=== PATIENT | male | born 1945 | race Caucasian/White ===

== ENCOUNTER → 2016-09-23 | Outpatient (REF) | payer MEDICARE, OTHER ==
[2016-09-23 15:39] LABS: ALBUMIN 3.5 GM/DL (3.2-5.2); ALBUMIN/GLOBULIN RATIO 1.09 (1.00-1.93); ALKALINE PHOSPHATASE 75 U/L (45-117); ALT/SGPT 18 U/L (12-78); ANION GAP 6 MEQ/L (8-16); AST/SGOT 23 U/L (15-37); BILIRUBIN,TOTAL 0.5 MG/DL (0.2-1.0); BLOOD UREA NITROGEN 18 MG/DL (7-18); CARBON DIOXIDE LEVEL 35 MEQ/L (21-32); CHLORIDE LEVEL 102 MEQ/L (98-107); CHOLESTEROL LEVEL 255 MG/DL (<200); CREATININE FOR GFR 1.38 MG/DL (0.70-1.30); GLOMERULAR FILTRATION RATE 53.9 (>42); GLUCOSE, FASTING 117 MG/DL (83-110); POTASSIUM SERUM 4.8 MEQ/L (3.5-5.1); SODIUM LEVEL 143 MEQ/L (136-145); TOTAL PROTEIN 6.7 GM/DL (6.4-8.2); TRIGLYCERIDES LEVEL 570 MG/DL (<150)
== END ==
LOC: M SFHCLACO 08:38
PROVIDERS: ATTEND Physician Assistant
DX: E11.9 Type 2 diabetes mellitus without complications (principal); E78.2 Mixed hyperlipidemia; I10 Essential (primary) hypertension; I25.10 Atherosclerotic heart disease of native coronary artery without angina pectoris

== ENCOUNTER → 2016-10-07 | Outpatient (REF) | payer MEDICARE, OTHER | LOC: M SFHCLACO 09:05 | PROVIDERS: ATTEND Physician Assistant | DX: E78.2 Mixed hyperlipidemia (principal); E11.9 Type 2 diabetes mellitus without complications; I25.10 Atherosclerotic heart disease of native coronary artery without angina pectoris; I10 Essential (primary) hypertension; Z12.5 Encounter for screening for malignant neoplasm of prostate; Z53.8 Procedure and treatment not carried out for other reasons ==

== ENCOUNTER → 2016-12-25 | Outpatient (REF) | payer MEDICARE, OTHER ==
[2016-12-25 15:36] LABS: ALBUMIN 3.5 GM/DL (3.2-5.2); ALBUMIN/GLOBULIN RATIO 1.13 (1.00-1.93); BILIRUBIN,TOTAL 0.6 MG/DL (0.2-1.0); CALCIUM LEVEL 9.2 MG/DL (8.8-10.2); CREATININE FOR GFR 1.57 MG/DL (0.70-1.30); GLOMERULAR FILTRATION RATE 46.3 (>42); TOTAL PROTEIN 6.6 GM/DL (6.4-8.2)
== END ==
LOC: M LAB REF 15:01
PROVIDERS: ATTEND Physician Assistant
DX: I25.10 Atherosclerotic heart disease of native coronary artery without angina pectoris (principal); I11.9 Hypertensive heart disease without heart failure; E78.00 Pure hypercholesterolemia, unspecified

== ENCOUNTER → 2017-04-02 | Outpatient (REF) | payer MEDICARE ==
[2017-04-02 15:49] LABS: MEAN CORPUSCULAR HEMOGLOBIN 32.1 pg (27.0-33.0); MEAN CORPUSCULAR HGB CONC 33.9 g/dl (32.0-36.5); MEAN CORPUSCULAR VOLUME 94.8 fl (80.0-96.0); RED CELL DISTRIBUTION WIDTH 13.1 % (11.5-14.5); WHITE BLOOD COUNT 6.3 K/mm3 (4.0-10.0)
== END ==
LOC: M SFHCLACO 11:57
PROVIDERS: ATTEND Physician Assistant
DX: M00.9 Pyogenic arthritis, unspecified (principal)
CPT/HCPCS: 36415; 85027; G0463

== ENCOUNTER → 2017-04-07 | Outpatient (REF) | payer MEDICARE ==
[2017-04-07 15:20] LABS: ALBUMIN 3.2 GM/DL (3.2-5.2); ALBUMIN/GLOBULIN RATIO 1.03 (1.00-1.93); ALKALINE PHOSPHATASE 70 U/L (45-117); ALT/SGPT 14 U/L (12-78); ANION GAP 4 MEQ/L (8-16); AST/SGOT 18 U/L (15-37); BILIRUBIN,TOTAL 0.7 MG/DL (0.2-1.0); BLOOD UREA NITROGEN 23 MG/DL (7-18); CARBON DIOXIDE LEVEL 33 MEQ/L (21-32); CHLORIDE LEVEL 105 MEQ/L (98-107); CHOLESTEROL LEVEL 182 MG/DL (<200); CREATININE FOR GFR 1.25 MG/DL (0.70-1.30); GLOMERULAR FILTRATION RATE > 60.0 (>42); GLUCOSE, FASTING 96 MG/DL (83-110); POTASSIUM SERUM 4.4 MEQ/L (3.5-5.1); SODIUM LEVEL 142 MEQ/L (136-145); TOTAL PROTEIN 6.3 GM/DL (6.4-8.2); TRIGLYCERIDES LEVEL 255 MG/DL (<150)
== END ==
LOC: M SFHCLACO 08:42
PROVIDERS: ATTEND Physician Assistant
DX: I10 Essential (primary) hypertension (principal); E78.2 Mixed hyperlipidemia; I25.10 Atherosclerotic heart disease of native coronary artery without angina pectoris; E11.9 Type 2 diabetes mellitus without complications

== ENCOUNTER → 2017-06-30 | Outpatient (REF) | payer MEDICARE ==
[2017-06-30 15:07] LABS: ALBUMIN 3.3 GM/DL (3.2-5.2); ALBUMIN/GLOBULIN RATIO 1.03 (1.00-1.93); BILIRUBIN,TOTAL 0.6 MG/DL (0.2-1.0); CALCIUM LEVEL 8.9 MG/DL (8.8-10.2); CREATININE FOR GFR 1.4 MG/DL (0.70-1.30); GLOMERULAR FILTRATION RATE 52.9 (>42); POTASSIUM SERUM 4.2 MEQ/L (3.5-5.1); TOTAL PROTEIN 6.5 GM/DL (6.4-8.2)
== END ==
LOC: M LAB REF 14:34
PROVIDERS: ATTEND Physician Assistant
DX: I25.10 Atherosclerotic heart disease of native coronary artery without angina pectoris (principal); E78.00 Pure hypercholesterolemia, unspecified; I11.9 Hypertensive heart disease without heart failure

== ENCOUNTER → 2017-09-29 | Outpatient (REF) | payer MEDICARE ==
[2017-09-29 15:36] LABS: ESTIMATED AVERAGE GLUCOSE 128 MG/DL (60-110); HEMOGLOBIN A1c 6.1 %
[2017-09-29 15:43] LABS: ALBUMIN 3.5 GM/DL (3.2-5.2); ALBUMIN/GLOBULIN RATIO 1.17 (1.00-1.93); ALKALINE PHOSPHATASE 74 U/L (45-117); ALT/SGPT 21 U/L (12-78); ANION GAP 5 MEQ/L (8-16); AST/SGOT 24 U/L (7-37); BILIRUBIN,TOTAL 0.6 MG/DL (0.2-1.0); BLOOD UREA NITROGEN 29 MG/DL (7-18); CARBON DIOXIDE LEVEL 35 MEQ/L (21-32); CHLORIDE LEVEL 103 MEQ/L (98-107); CHOLESTEROL LEVEL 182 MG/DL (<200); CHOLESTEROL RISK RATIO 4.333 (<5); CREATININE FOR GFR 1.47 MG/DL (0.70-1.30); GLUCOSE, FASTING 86 MG/DL (70-100); HDL CHOLESTEROL 42 MG/DL (>40); LDL CHOLESTEROL 82.4 MG/DL (<100); NON-HDL-C 140 MG/DL; POTASSIUM SERUM 4.5 MEQ/L (3.5-5.1); PSA SCREENING 1.14 NG/ML (< 4.0); SODIUM LEVEL 143 MEQ/L (136-145); TOTAL PROTEIN 6.5 GM/DL (6.4-8.2); TRIGLYCERIDES LEVEL 288 MG/DL (<150)
== END ==
LOC: M SFHCLACO 08:35
DX: E11.9 Type 2 diabetes mellitus without complications (principal); I10 Essential (primary) hypertension; E78.2 Mixed hyperlipidemia; Z12.5 Encounter for screening for malignant neoplasm of prostate
CPT/HCPCS: 80053

== ENCOUNTER 2017-12-01 15:54 | Emergency (ER) | payer MEDICARE ==
[2017-12-01 17:05] LABS: BASO # 0.1 10^3/uL (0.0-0.2); BASO % 0.8 % (0.0-1.0); EOS # 0.3 10^3/uL (0.0-0.50); EOS % 3.6 % (0.0-3.0); HEMATOCRIT 42.2 % (42.0-52.0); HEMOGLOBIN 14.1 g/dl (13.5-17.5); IMMATURE GRANULOCYTE % 0.4 % (0-3.0); LYMPH # 1.9 10^3/uL (1.5-4.5); MEAN CORPUSCULAR HEMOGLOBIN 31.6 pg (27.0-33.0); MEAN CORPUSCULAR HGB CONC 33.4 g/dl (32.0-36.5); MEAN CORPUSCULAR VOLUME 94.6 fl (80.0-96.0); MONO # 0.6 10^3/uL (0.0-0.8); MONO % 8.1 % (0.0-5.0); NEUTROPHILS # 4.6 10^3/uL (1.8-7.7); NEUTROPHILS % 62.1 % (36.0-66.0); PLATELET COUNT, AUTOMATED 163 10^3/uL (150-450); RED BLOOD COUNT 4.46 10^6/uL (4.30-6.10); RED CELL DISTRIBUTION WIDTH 13.7 % (11.5-14.5); WHITE BLOOD COUNT 7.4 10^3/uL (4.0-10.0)
[2017-12-01] MEDS: ASPIRIN 81 MG CHEW TABLET PO (17:14)
[2017-12-01 17:18] LABS: INR 0.94; PROTHROMBIN TIME 12.6 SECONDS (12.4-14.5)
[2017-12-01 17:32] LABS: ALBUMIN 3.4 GM/DL (3.2-5.2); ALBUMIN/GLOBULIN RATIO 0.89 (1.00-1.93); ALKALINE PHOSPHATASE 68 U/L (45-117); ALT/SGPT 18 U/L (12-78); ANION GAP 2 MEQ/L (8-16); AST/SGOT 25 U/L (7-37); BILIRUBIN,DIRECT 0.1 MG/DL (0.0-0.2); BILIRUBIN,TOTAL 0.6 MG/DL (0.2-1.0); BLOOD UREA NITROGEN 20 MG/DL (7-18); CALCIUM LEVEL 8.9 MG/DL (8.8-10.2); CARBON DIOXIDE LEVEL 34 MEQ/L (21-32); CHLORIDE LEVEL 105 MEQ/L (98-107); CPK CREATINE PHOSPHOKINASE 131 U/L (39-308); CREATININE FOR GFR 1.44 MG/DL (0.70-1.30); GLOMERULAR FILTRATION RATE 51.1 (>42); GLUCOSE, FASTING 95 MG/DL (70-100); LIPASE 170 U/L (73-393); POTASSIUM SERUM 3.9 MEQ/L (3.5-5.1); SODIUM LEVEL 141 MEQ/L (136-145); TOTAL PROTEIN 7.2 GM/DL (6.4-8.2); TROPONIN I < 0.02 NG/ML (< 0.10)
[2017-12-01 17:38] LABS: CK-MB VALUE MASS 3.7 NG/ML (<3.6); MB/CK RELATIVE INDEX 2.82 (< OR =4)
[2017-12-01] MEDS ORDERED: ISOVUE-370 76% 100ML VIAL (Q9967) As Ordered (19:46)
[2017-12-01 22:29] LABS: CK-MB VALUE MASS 4.4 NG/ML (<3.6); CPK CREATINE PHOSPHOKINASE 142 U/L (39-308); MB/CK RELATIVE INDEX 3.09 (< OR =4); TROPONIN I < 0.02 NG/ML (< 0.10)
== END 2017-12-01 23:39 | disposition home or self-care (01) ==
LOC: M ED 15:54
DX: R61 Generalized hyperhidrosis (principal); R11.0 Nausea; I25.10 Atherosclerotic heart disease of native coronary artery without angina pectoris; I25.2 Old myocardial infarction; I10 Essential (primary) hypertension; E78.5 Hyperlipidemia, unspecified; Z91.048 Other nonmedicinal substance allergy status; Z87.891 Personal history of nicotine dependence; Z88.1 Allergy status to other antibiotic agents; Z88.2 Allergy status to sulfonamides; Z79.899 Other long term (current) drug therapy
CPT/HCPCS: Q9967

== ENCOUNTER → 2018-03-23 | Outpatient (REF) | payer MEDICARE ==
[2018-03-23 15:02] LABS: ALBUMIN 3.3 GM/DL (3.2-5.2); ALKALINE PHOSPHATASE 64 U/L (45-117); ALT/SGPT 19 U/L (12-78); ANION GAP 7 MEQ/L (8-16); AST/SGOT 26 U/L (7-37); BILIRUBIN,TOTAL 0.6 MG/DL (0.2-1.0); BLOOD UREA NITROGEN 15 MG/DL (7-18); CALCIUM LEVEL 8.8 MG/DL (8.8-10.2); CARBON DIOXIDE LEVEL 31 MEQ/L (21-32); CHLORIDE LEVEL 107 MEQ/L (98-107); CHOLESTEROL LEVEL 217 MG/DL (<200); CREATININE FOR GFR 1.38 MG/DL (0.70-1.30); GLOMERULAR FILTRATION RATE 53.6 (>42); GLUCOSE, FASTING 118 MG/DL (70-100); HDL CHOLESTEROL 35 MG/DL (>40); NON-HDL-C 182 MG/DL; POTASSIUM SERUM 4.4 MEQ/L (3.5-5.1); SODIUM LEVEL 145 MEQ/L (136-145); TOTAL PROTEIN 6.3 GM/DL (6.4-8.2); TRIGLYCERIDES LEVEL 463 MG/DL (<150)
[2018-03-23 15:07] LABS: ESTIMATED AVERAGE GLUCOSE 134 MG/DL (60-110); HEMOGLOBIN A1c 6.3 %
== END ==
LOC: M SFHCLACO 08:36
DX: I10 Essential (primary) hypertension (principal); I25.10 Atherosclerotic heart disease of native coronary artery without angina pectoris; E78.2 Mixed hyperlipidemia; E11.9 Type 2 diabetes mellitus without complications
CPT/HCPCS: 80053

== ENCOUNTER 2020-12-13 09:13 | Inpatient (IN) | payer MEDICARE ==
[~2020-12-13] VITALS: Ht 160 cm; Wt 96.9 kg
[~2020-12-13 09:13] MED LIST: ALLO100T; BENA20TA8 PO; FURO20TA2 PO; NITR0.4S14 PO; PRAV20TA2 PO
[2020-12-13] MEDS ORDERED: METO1TAB7 PO (09:21)
[2020-12-13] MEDS ORDERED: ALLO100T PO (09:21)
[2020-12-13] MEDS ORDERED: WARF-18 PO ×2 (09:21→14:28)
[2020-12-13] MEDS ORDERED: EZET10TA21 PO (09:21)
[2020-12-13] MEDS ORDERED: ONDANSETRON 4MG/2ML VIAL As Ordered ONE (09:41)
[2020-12-13 10:10] LABS: VENOUS BASE EXCESS 0.9 (-2.0-2.0); VENOUS PARTIAL PRESSURE CO2 49.2 mmHg (38.0-50.0); VENOUS PARTIAL PRESSURE O2 63.8 mmHg (30.0-50.0); VENOUS PH 7.358 UNITS (7.330-7.430); VENOUS STANDARD HCO3 25.1 MEQ/L; VENOUS TOTAL CO2 28.6 MEQ/L (24.0-28.0)
[2020-12-13 10:16] LABS: HEMATOCRIT 40.8 % (42.0-52.0); HEMOGLOBIN 13.7 g/dl (13.5-17.5); MEAN CORPUSCULAR HEMOGLOBIN 31.2 pg (27.0-33.0); MEAN CORPUSCULAR HGB CONC 33.6 g/dl (32.0-36.5); MEAN CORPUSCULAR VOLUME 92.9 fl (80.0-96.0); PLATELET COUNT, AUTOMATED 185 10^3/uL (150-450); RED BLOOD COUNT 4.39 10^6/uL (4.30-6.10); WHITE BLOOD COUNT 6.7 10^3/uL (4.0-10.0)
--- NOTE | 2020-12-13 10:27 | REP ---
INDICATION: DYSPNEA/COUGH. COMPARISON: 12/01/2017 the latest prior also portable FINDINGS: The technique utilized in obtaining the radiograph has magnified the cardiac silhouette and accentuated the interstitial markings. The cardiomediastinal silhouette is unchanged and within normal limits. Patchy opacities have developed in the right lung and left lower lobe. There is no evidence of a pleural effusion. There is no change in the osseous structures. IMPRESSION: Patchy lung field opacities, as described above, consistent with either pneumonia or asymmetric pulmonary edema. <Electronically signed by El Gipson > 12/13/20 1022
[2020-12-13 10:30] LABS: INR 4.23; PROTHROMBIN TIME 41.7 SECONDS (12.5-14.3)
[2020-12-13 10:32] LABS: D-DIMER QUANT 650.87 ng/ml (<500)
[2020-12-13 10:38] LABS: ATYPICAL LYMPH 11 % (0-5); LYMPHOCYTES 12 % (16-44); MONOCYTES 3 % (0-5); NEUTROPHILS 73 % (28-66); PLATELET ESTIMATE NORMAL (NORMAL)
[2020-12-13 10:39] LABS: ANISOCYTOSIS 1+
[2020-12-13 10:44] LABS: ERYTHROCYTE SEDIMENTATION RATE 84 mm/hr (0-20)
[2020-12-13 10:47] LABS: ALBUMIN 2.7 GM/DL (3.2-5.2); BILIRUBIN,DIRECT 0.5 MG/DL (0.0-0.2); CALCIUM LEVEL 8.8 MG/DL (8.8-10.2); CK-MB VALUE MASS 4.7 NG/ML (<3.6); CREATININE FOR GFR 2.28 MG/DL (0.70-1.30); GLOMERULAR FILTRATION RATE 29.8 (>42); MB/CK RELATIVE INDEX 1.81 (< OR =4); POTASSIUM SERUM 4.5 MEQ/L (3.5-5.1); THYROID STIMULATING HORMONE 2.07 uIU/ML (0.358-3.740); THYROXINE (T4) 6.5 UG/DL (4.5-12.0); TOTAL PROTEIN 6.7 GM/DL (6.4-8.2); TROPONIN I 0.02 NG/ML (< 0.10)
[2020-12-13] MEDS ORDERED: NS 500 ML IV ONE (11:30)
--- NOTE | 2020-12-13 12:03 | REP ---
INDICATION: shortness of breath, abdominal discomfort- post covid/arf. COMPARISON: 12/01/2017. TECHNIQUE: CT chest performed without the use of intravenous contrast. Sagittal and coronal reconstruction images are performed. FINDINGS: Lungs: Scattered patchy alveolar and interstitial infiltrates are seen throughout the right lung, to a much lesser extent throughout the left lung. There are few calcified granulomas in the right lung. Mediastinum: A precarinal lymph node is centrally upper limits of normal in size, 11 mm in short axis. Fozia: No gross adenopathy. Axilla: No gross adenopathy. Pleura: No effusion. Heart: Not enlarged. Thoracic aorta: No aneurysm. Upper abdominal structures: There is a 2.4 cm gallstone in the gallbladder. There is a 1.6 cm cyst in the upper pole the left kidney. There is an exophytic 1.5 cm cyst of the mid right kidney laterally. Visualized osseous structures: There are mild degenerative changes of the spine without compression deformity. IMPRESSION: Scattered patchy alveolar are and interstitial infiltrates diffusely bilaterally, right much more so than left. <Electronically signed by Cory Howell > 12/13/20 1200
--- NOTE | 2020-12-13 12:19 | REP ---
INDICATION: shortness of breath, abdominal discomfort- post covid/arf COMPARISON: None. TECHNIQUE: CT Scan of the abdomen and pelvis was performed without intravenous contrast. Sagittal and coronal reconstruction images performed. FINDINGS: Liver: Grossly unremarkable. Gallbladder: There is a 2.4 cm gallstone in the gallbladder without evidence of significant gallbladder wall thickening. Spleen: Grossly unremarkable. Adrenals: Normal. Pancreas: Grossly unremarkable.. Kidneys: There is a 1.6 cm cyst in the upper pole the left kidney. There is an exophytic 1.5 cm cyst of the mid right kidney laterally. There is a 9 mm calculus at the left ureteral pelvic junction. There is mild left hydronephrosis. Small and large bowel: There is no evidence of free intraperitoneal air or bowel obstruction. No bowel wall thickening is seen. There are diverticula of the sigmoid colon. Free fluid: None. Abdominal aorta: No aneurysm. Adenopathy: None. Appendix: Prior appendectomy. Osseous structures: There are degenerative changes of the spine without compression deformity. Pelvis: No mass. No bladder calculus seen. IMPRESSION: There is a 9 mm calculus at the left ureteropelvic junction causing mild left hydronephrosis. There is a 2.4 cm gallstone in the gallbladder without evidence of significant gallbladder wall edema. No evidence of free air or obstruction. No free fluid. <Electronically signed by Cory Howell > 12/13/20 1004
[2020-12-13] MEDS ORDERED: NS 1,000 ML IV ONE (13:15)
[2020-12-13] MEDS ORDERED: MOXIFLOXACIN HCL 400 MG in IV 1 EA IV ONE (13:15)
[2020-12-13] MEDS ORDERED: cefTRIAXone SOD 2 GM in D5W MINI-BAG PLUS 50 ML IV ONE (13:25)
[2020-12-13] MEDS ORDERED: ASPI81TA28 PO (14:28)
[2020-12-13] MEDS ORDERED: MAALOX 30 ML SUSP *UDC PO PRN (16:00)
[2020-12-13] MEDS ORDERED: MOM 30ML SUSPENSION UDC PO PRN (16:00)
[2020-12-13] MEDS ORDERED: ACETAMINOPHEN TAB 650MG DOSE (2X325MG) PO PRN (16:00)
--- NOTE | 2020-12-13 16:46 | HPEPDOC ---
[facility] Medical History & Physical Date of Admission December 13, 2020 Date of Service: December 13, 2020 History and Physical CHIEF COMPLAINT: vomiting and diarrhea HISTORY OF PRESENT ILLNESS: 75 yo M with a hx of HTN, CAD s/p VT, LV thrombus on warfarin, DM2, HLD, recently diagnosed with covi-19 (quarantine ended on 12/11/20, without hospitilization), presented to the ER from his PCP office for shortness of breath and hypoxia. He was noted to be hypoxic to low 80s per report, and required 2LPM in ambulance. He also reported 3 days of nausea, vomiting and frequent watery diarrhea, without a hx of recent antibiotic or laxative use. He states he was diagnose with covid-19 recently, and did not require hospilization, quarantine at home finished on 12/11/20. He denies chest pain, palpitations, shortness of breath, dysuria, cough, sputum or subjective chills. On arrival to ER, patient required 4L O2. labs showing elevated Cr to 2.28 (last known 1.3). CT abdomen showing 9mm stone at L ureteropelvic junction with mild L hydronephrosis. Patient does not report flank or back pain, voiding urine spontaneously. Dr. Villarreal from urology was called, does not suspect stone to be cause of ROEL but rather dehydration. CT chest showing interstitial infiltrate worse on R. Procal was elevated at 0.12. PAST MEDICAL HISTORY: Coronary artery disease s/p VT involving LAD in 1995, s/p thrombolytic therapy, follows with Dr. Robles LV apical thrombus dx 2018, on warfarin therapy Essential HTN Gout DM2 BPH HLD PAST SURGICAL HISTORY: Appendectomy SOCIAL HISTORY: Former smoker, quit > 10 years ago Patient denies etoh use Patient denies illicit drug use FAMILY HISTORY: Father: , age 72, COPD Mother: age 101, unspecified heart disease ALLERGIES: Please see below. REVIEW OF SYSTEMS: 10 point ROS completed, relevant findings are noted in the HPI HOME MEDICATIONS: Please see below. PHYSICAL EXAMINATION: VITAL SIGNS: please see below General: NAD, comfortable HEENT: PERRLA, EOMI, sclerae clear Neck: supple, normal ROM, no JVD Respiratory: lungs CTAB, no wheeze, no rales, no crackles CVS: RRR, normal S1, S2, no murmurs Abdo: soft, no masses, no hepatosplenomegaly, BS+, no rebound tenderness Extremities: no edema, pulses 2+ MSK: no joint deformities, normal ROM Neuro: no focal neuro deficits, moving all 4 extremities, CN2-12 intact. Strength 5/5 in all 4 extremities. No nystagmus. Psych: calm, cooperative, AAO x 3 LABORATORY DATA: See below. IMAGING: CT chest (12/13/20): Scattered patchy alveolar are and interstitial infiltrates diffusely bilaterally, right much more so than left. CXR (12/13/20): Patchy lung field opacities, as described above, consistent with either pneumonia or asymmetric pulmonary edema. CT abdo pelvis without contrast (12/13/20): There is a 9 mm calculus at the left ureteropelvic junction causing mild left hydronephrosis. There is a 2.4 cm gallstone in the gallbladder without evidence of significant gallbladder wall edema. No evidence of free air or obstruction. No free fluid. MICROBIOLOGY: Please see below. ASSESSMENT: 75 yo M with a hx of HTN, CAD s/p VT, LV thrombus on warfarin, DM2, HLD, recently diagnosed with covi-19 (quarantine ended on 12/11/20, without hospitilization), presented to the ER from his PCP office for shortness of breath and hypoxia. PLAN: Dyspnea with hypoxic possible 2/2 post covid syndrome vs superimposed bacterial pna - tested positive for covid on 12/01/20, quarantine ended on 12/13/20. No additional testing performed in ER - inflammatory markers elevated - discussed with Dr. Ellis, having persistent symptoms of covid. out of Remdesevir window. Recommends starting IV dexamethasone 6 mg IV daily. - PE unlikely given chronic warfarin therapy, INR supratherapeutic. Will obtain venous duplex and VQ scan in event of AC failure - continue O2 maintain sat above 92%. - incentive spirometry - given BNP elevation to 750, possible component of acute distolic CHF exacerbation (see below) - procal 0.12. - start on ceftriaxone and azithromycin for suspect pna - check sputum culture, check legionella antigen, check strep pneum urine ag - check blood cultures Acute renal failure - given diarrhea and vomiting likely pre renal due to hypovolemia - check UA w reflex to culture - CT showing 9mm stone, mild hydronephrosis, per urology likely not cause of acute renal failure, given lack of pain - will repeat renal US in am - s/p 1500 NS bolus in ER - c/w maintenance IVF, judicious use given hx of diastolic CHF LV thrombus - per Dr. Robles, on chronic warfarin therapy - repeat echo ordered Diastolic CHF hx - BNP 750 - echo ordered - will continue judicious use of fluids, until kidney function improves Supratherapeutic INR - holding warfarin as supratherapetic INR - check INR daily DM2 - ISS and FSBS AC and HS - hypoglycemic precautions DVT ppx: SCDs, TEDs. Holding warfarin due to supratherapeutic INR. Vital Signs Vital Signs Date Time Temp Pulse Resp B/P (MAP) Pulse Ox O2 Delivery O2 Flow Rate FiO2 12/13/20 15:15 64 19 122/58 (79) 96 Nasal Cannula 4.0 12/13/20 09:14 98.2 Laboratory Data Labs 24H Laboratory Tests 2 12/13/20 09:32: Neutrophils (%) (Auto) , Nucleated Red Blood Cells % (auto) 0.3H, Neutrophils 73H, Band Neutrophils 1, Lymphocytes (Manual) 12L, Monocytes (Manual) 3, Atypical Lymphocytes 11H, Anisocytosis 1+, Macrocytosis 1+, Platelet Estimate NORMAL, Erythrocyte Sedimentation Rate 84H, Prothrombin Time 41.7H, Prothromb Time International Ratio 4.23, D-Dimer, Quantitative 650.87H, Anion Gap 6L, G lomerular Filtration Rate 29.8L, Lactic Acid Level 1.3, Calcium Level 8.8, Ferritin 541H, Total Bilirubin 1.0, Direct Bilirubin 0.5H, Aspartate Amino Transf (AST/SGOT) 68H, Alanine Aminotransferase (ALT/SGPT) 25, Alkaline Phosphatase 69, Lactate Dehydrogenase 325H, Total Creatine Kinase 260, Creatine Kinase MB 4.7H, Creatine Kinase MB Relative Index 1.81, Troponin I 0.02, C- Reactive Protein, Quantitative 11.00H, YB-Qod-H-Type Natriuretic Peptide 748H, Total Protein 6.7, Albumin 2.7L, Albumin/Globulin Ratio 0.7, Thyroid Stimulating Hormone (TSH) 2.070, Thyroxine (T4) 6.5 12/13/20 09:54: Blood Gas Bicarbonate Standard 25.1, Venous Blood pH 7.358, Venous Blood Partial Pressure CO2 49.2, Venous Blood Partial Pressure O2 63.8H, Venous Blood Total Carbon Dioxide 28.6H, Venous Blood HCO3 27.0, Venous Blood Oxygen Saturation 91.0H, Venous Blood Base Excess 0.9, Procalcitonin 0.12 CBC/BMP Laboratory Tests 12/13/20 09:32 Microbiology Microbiology 12/13/20 Blood Culture, Received Pending 12/13/20 Blood Culture, Received Pending Home Medications Scheduled Allopurinol (Allopurinol) 100 Mg Tablet, 100 MG PO DAILY Amoxicillin/Potassium Clav (Augmentin 875-125 Tablet) 1 Each Tablet, 1 TAB PO BID Aspirin (Aspirin EC) 81 Mg Tablet.dr, 81 MG PO DAILY Benazepril HCl (Benazepril HCl) 20 Mg Tab, 20 MG PO DAILY Ezetimibe (Ezetimibe) 10 Mg Tablet, 10 MG PO QHS Furosemide (Furosemide) 20 Mg Tab, 20 MG PO DAILY Metoprolol Succinate (Metoprolol Succinate) 50 Mg Tab.er.24h, 25 MG PO DAILY Pravastatin Sodium (Pravastatin Sodium) 20 Mg Tab, 20 MG PO QHS Warfarin Sodium (Warfarin Sodium) 2.5 Mg Tablet, 5 MG PO 3XW TUES, THURS, SAT EVENING Warfarin Sodium (Warfarin Sodium) 2.5 Mg Tablet, 7 MG PO 4XWK SUN, MON, WED, FRI EVENING Scheduled PRN Nitroglycerin (Nitroglycerin) 0.4 Mg Sub, 0.4 MG PO NITRO PRN for CHEST PAIN Allergies Coded Allergies: Sulfa (Sulfonamide Antibiotics) (Verified Allergy, Unknown, 12/13/20) A-FIB/CHADSVASC A-FIB History Current/History of A-Fib/PAF?: No Current PO Anticoag Therapy: Yes YO MORENO MD December 13, 2020 16:46
[2020-12-13 17:12] VITALS: BP 106/52
[2020-12-13] MEDS ORDERED: cefTRIAXone SOD 1 GM in D5W MINI-BAG PLUS 50 ML IV SCH (18:00)
[2020-12-13] MEDS: NS 1,000 ML IV SCH (18:09)
[2020-12-13] MEDS: dexameTHASONE 4 MG/ML 1ML VIAL (J1100 PER 1MG) IV SCH (18:09)
[2020-12-13] MEDS ORDERED: AZITHROMYCIN INJ 500 MG, VIAL MATE ADAPTER 1 EACH in NS 250 ML IV SCH (19:00)
[2020-12-13 20:07] VITALS: BP 99/53
[2020-12-13] MEDS: DOCUSATE SODIUM 100MG CAPSULE PO SCH (20:53)
[2020-12-13] MEDS ORDERED: HEPARIN SOD (PORCINE) 5000UNITS/ML 1ML VIAL/SYRINGE SC SCH (22:00)
--- NOTE | 2020-12-14 00:29 | REPVR ---
PROCEDURE INFORMATION: Exam: US Duplex Lower Extremity Veins, Bilateral Exam date and time: 12/13/2020 11:49 PM Age: 75 years old Clinical indication: Other: SOB, covid +; Additional info: R. O dvt TECHNIQUE: Imaging protocol: Real-time duplex ultrasound of the extremities with 2-D roberts scale, color Doppler flow and spectral waveform analysis with image documentation. Complete exam focused on the bilateral lower extremity veins. COMPARISON: No relevant prior studies available. FINDINGS: Right deep veins: Unremarkable. The common femoral, femoral and popliteal veins are patent without thrombus. Normal Doppler waveforms. Normal compressibility and/or augmentation response. Right superficial veins: Saphenofemoral junction is patent without thrombus. Left deep veins: Unremarkable. The common femoral, femoral and popliteal veins are patent without thrombus. Normal Doppler waveforms. Normal compressibility and/or augmentation response. Left superficial veins: Saphenofemoral junction is patent without thrombus. Soft tissues: Unremarkable. IMPRESSION: No sonographic evidence of deep vein thrombosis. Electronically signed by: Oleg Boykin On 12/14/2020 00:28:59 AM
[2020-12-14 00:56] VITALS: BP 108/55
--- NOTE | 2020-12-14 04:49 | ECGEPIP ---
[facility] - ED Test Date: 2020-12-13 Pat Name: HEIDY LAST Department: Room: - Gender: Male [employer]: KEIRA : 1945 Requested By: FREDERIC Gaffney Order Number: [id number] Reading MD: Edilberto Holley Measurements Intervals [place] Rate: 71 P: 38 [place]: 156 QRS: -40 QRSD: 120 T: 60 QT: 368 QTc: 399 Interpretive Statements Normal sinus rhythm Left axis deviation Right bundle branch block, new compared to 12/01/17 Anteroseptal infarct , age undetermined Electronically Signed on 12-14-2020 4:49:12 EDT by Edilberto Holley
[2020-12-14 04:56] VITALS: BP 100/59
[2020-12-14] MEDS: NS 1,000 ML IV SCH ×3 (06:32→22:11)
[2020-12-14] MEDS ORDERED: GLUCAGON INJ 1MG VIAL SC PRN (07:30)
[2020-12-14] MEDS ORDERED: NITROGLYCERIN 0.4 MG SUBL TABLET SL PRN (07:30)
[2020-12-14] MEDS ORDERED: COMBIVENT RESPIMAT 100-20MCG INHALER 4GM INH PRN (07:30)
[2020-12-14] MEDS ORDERED: GLUCOSE 4GM CHEW TABLET PO PRN (07:30)
[2020-12-14] MEDS ORDERED: DEXTROSE 50% 50 ML SYRINGE IV PRN (07:30)
[2020-12-14] MEDS: BENAZEPRIL 20 MG TAB PO SCH (09:00)
[2020-12-14] MEDS: METOPROLOL SUCC *XL* 25MG TAB (TopROL *XL*) PO SCH (09:00)
[2020-12-14 09:17] LABS: HEMATOCRIT 39.7 % (42.0-52.0); HEMOGLOBIN 12.8 g/dl (13.5-17.5); MEAN CORPUSCULAR HEMOGLOBIN 30.8 pg (27.0-33.0); MEAN CORPUSCULAR HGB CONC 32.2 g/dl (32.0-36.5); MEAN CORPUSCULAR VOLUME 95.7 fl (80.0-96.0); PLATELET COUNT, AUTOMATED 184 10^3/uL (150-450); RED BLOOD COUNT 4.15 10^6/uL (4.30-6.10); WHITE BLOOD COUNT 5.7 10^3/uL (4.0-10.0)
[2020-12-14 09:29] LABS: INR 4.67; PARTIAL THROMBOPLASTIN TIME 66.1 SECONDS (24.2-38.5); PROTHROMBIN TIME 45.1 SECONDS (12.5-14.3)
[2020-12-14 09:31] LABS: D-DIMER QUANT 474.39 ng/ml (<500)
[2020-12-14] MEDS: HumaLOG INSULIN (NovoLOG) PER UNIT SC SCH ×4 (09:38→20:17)
[2020-12-14] MEDS: dexameTHASONE 4 MG/ML 1ML VIAL (J1100 PER 1MG) IV SCH (09:39)
[2020-12-14] MEDS: FUROSEMIDE 20 MG TAB PO SCH (09:39)
[2020-12-14] MEDS: ASPIRIN 81MG ENTERIC TABLET PO SCH (09:39)
[2020-12-14] MEDS: DOCUSATE SODIUM 100MG CAPSULE PO SCH ×2 (09:39→20:16)
[2020-12-14] MEDS: allopurinoL 100 MG TAB PO SCH (09:41)
[2020-12-14 09:44] LABS: ATYPICAL LYMPH 5 % (0-5); BASOPHILS 1 % (0-1); LYMPHOCYTES 11 % (16-44); MONOCYTES 4 % (0-5); NEUTROPHILS 78 % (28-66); PLATELET ESTIMATE NORMAL (NORMAL)
[2020-12-14 09:45] LABS: ANISOCYTOSIS 1+
[2020-12-14 09:52] LABS: C REACTIVE PROTEIN QUANTITATIV 9.16 MG/DL (0.00-0.30); TROPONIN I 0.02 NG/ML (< 0.10)
[2020-12-14 09:58] LABS: ALBUMIN 2.3 GM/DL (3.2-5.2); BILIRUBIN,TOTAL 0.5 MG/DL (0.2-1.0); CALCIUM LEVEL 8.1 MG/DL (8.8-10.2); CREATININE FOR GFR 1.49 MG/DL (0.70-1.30); GLOMERULAR FILTRATION RATE 48.7 (>42); MAGNESIUM LEVEL 2.6 MG/DL (1.8-2.4); POTASSIUM SERUM 5.5 MEQ/L (3.5-5.1); TOTAL PROTEIN 5.5 GM/DL (6.4-8.2)
[2020-12-14 14:45] VITALS: BP 89/50
[2020-12-14] MEDS ORDERED: SOD POLYSTYRENE SULFONATE SUSP 15 GM/60 ML UD PO ONE (15:00)
[2020-12-14 16:31] VITALS: BP 90/53
[2020-12-14] MEDS ORDERED: NS 1,000 ML IV ONE (17:00)
[2020-12-14 17:59] LABS: HEMATOCRIT 37.6 % (42.0-52.0); HEMOGLOBIN 12.2 g/dl (13.5-17.5); MEAN CORPUSCULAR HEMOGLOBIN 31.3 pg (27.0-33.0); MEAN CORPUSCULAR HGB CONC 32.4 g/dl (32.0-36.5); MEAN CORPUSCULAR VOLUME 96.4 fl (80.0-96.0); PLATELET COUNT, AUTOMATED 189 10^3/uL (150-450); WHITE BLOOD COUNT 8.4 10^3/uL (4.0-10.0)
[2020-12-14 18:12] LABS: ALBUMIN 2.3 GM/DL (3.2-5.2); BILIRUBIN,TOTAL 0.4 MG/DL (0.2-1.0); CALCIUM LEVEL 8.5 MG/DL (8.8-10.2); CREATININE FOR GFR 1.5 MG/DL (0.70-1.30); GLOMERULAR FILTRATION RATE 48.3 (>42); MAGNESIUM LEVEL 2.4 MG/DL (1.8-2.4); POTASSIUM SERUM 4.6 MEQ/L (3.5-5.1); TOTAL PROTEIN 5.9 GM/DL (6.4-8.2)
[2020-12-14 18:30] VITALS: BP 98/54
[2020-12-14] MEDS: PIPERACILLIN/TAZOBACTAM SOD 4.5 GM in D5W MINI-BAG PLUS 50 ML IV SCH (18:41)
[2020-12-14 19:06] LABS: LYMPHOCYTES 11 % (16-44); NEUTROPHILS 89 % (28-66)
[2020-12-14 19:07] LABS: ANISOCYTOSIS 1+; OVALOCYTES 1+; PLATELET ESTIMATE NORMAL (NORMAL); POIKILOCYTOSIS 1+; POLYCHROMASIA 1+
[2020-12-14] MEDS ORDERED: ISOVUE-370 76% 100ML VIAL As Ordered ONE (19:27)
[2020-12-14 20:00] VITALS: BP 114/60
[2020-12-14] MEDS: PRAVASTATIN 20 MG TAB PO SCH (20:16)
[2020-12-14] MEDS: EZETIMIBE 10 MG TAB (ZETIA) PO SCH (20:17)
--- NOTE | 2020-12-14 20:25 | REPVR ---
PROCEDURE INFORMATION: Exam: CTA Chest With Contrast Exam date and time: 12/14/2020 7:53 PM Age: 75 years old Clinical indication: Other: R/O pe TECHNIQUE: Imaging protocol: Computed tomographic angiography of the chest with contrast. 3D rendering (Not supervised by radiologist): MIP and/or 3D reconstructed images were created by the technologist. Radiation optimization: All CT scans at this facility use at least one of these dose optimization techniques: automated exposure control; mA and/or kV adjustment per patient size (includes targeted exams where dose is matched to clinical indication); or iterative reconstruction. Contrast material: ISOVUE 370; Contrast volume: 75 ml; Contrast route: INTRAVENOUS (IV); COMPARISON: CT ANGIO CHEST 12/01/2017 7:48 PM FINDINGS: Limitations: This examination is slightly suboptimal secondary to motion induced image degradation. Pulmonary arteries: No filling defects identified within the main pulmonary trunk, right or left main pulmonary arteries or lobar arteries to indicate pulmonary emboli. Aorta: Mild atherosclerosis of the thoracic aorta without aneurysm or dissection. Lungs: There are bilateral multifocal patchy lung densities and ground-glass opacities as well as extensive consolidation within the right upper lobe consistent with multifocal pneumonia in the proper clinical setting. Other underlying pulmonary lesions including malignancy cannot be excluded. Follow-up CT scan a confirm resolution is recommended. Pleural spaces: Unremarkable. No pneumothorax. No pleural effusion. Heart: Moderate coronary atherosclerosis. Lymph nodes: Mild mediastinal and bilateral hilar lymphadenopathy, nonspecific but likely reactive. Gallbladder and bile ducts: 2.5 cm stone within the gallbladder without cholecystitis. Bones/joints: Degenerative spondylosis of the lower cervical and thoracic spine. No fracture or suspicious bone lesion. Soft tissues: Unremarkable. IMPRESSION: 1. Slightly limited evaluation of the peripheral pulmonary arteries. No central pulmonary arterial embolism is identified. 2. Findings consistent with bilateral multifocal pneumonia in the proper clinical setting. Other underlying pulmonary lesions including malignancy cannot be completely excluded. Follow-up CT scan of the chest is recommended to confirm resolution. Electronically signed by: Rivas Dixon On 12/14/2020 20:25:39 PM
--- NOTE | 2020-12-14 21:52 | IPNPDOC ---
Date Seen The patient was seen on 12/14/20. Progress Note SUBJECTIVE: no acute events OBJECTIVE PHYSICAL EXAMINATION: VITAL SIGNS: please see below General: NAD, comfortable HEENT: PERRLA, EOMI, sclerae clear Neck: supple, normal ROM, no JVD Respiratory: lungs CTAB, no wheeze, no rales, no crackles CVS: RRR, normal S1, S2, no murmurs Abdo: soft, no masses, no hepatosplenomegaly, BS+, no rebound tenderness Extremities: no edema, pulses 2+ MSK: no joint deformities, normal ROM Neuro: no focal neuro deficits, moving all 4 extremities, CN2-12 intact. Strength 5/5 in all 4 extremities. No nystagmus. Psych: calm, cooperative, AAO x 3 LABORATORY DATA, IMAGING STUDIES, MICROBIOLOGY: Please see below. Venous duplex b/l (12/13/20: No sonographic evidence of deep vein thrombosis. CTA chest (12/14/20): 1. Slightly limited evaluation of the peripheral pulmonary arteries. No central pulmonary arterial embolism is identified. 2. Findings consistent with bilateral multifocal pneumonia in the proper clinical setting. Other underlying pulmonary lesions including malignancy cannot be completely excluded. Follow-up CT scan of the chest is recommended to confirm resolution. Echocardiogram: ordered, pending DVT prophylaxis ordered?: INR supratherapeutic ASSESSMENT AND PLAN: 75 yo M with a hx of HTN, CAD s/p PA, LV thrombus on warfarin, DM2, HLD, recently diagnosed with covi-19 (quarantine ended on 12/11/20, without hospitilization), presented to the ER from his PCP office for shortness of breath and hypoxia. PLAN: Dyspnea with hypoxic possible 2/2 post covid syndrome vs superimposed bacterial pna - tested positive for covid on 12/01/20, quarantine ended on 12/13/20. No additional testing performed in ER - inflammatory markers elevated - discussed with Dr. Ellis, having persistent symptoms of covid. out of Remde sevir window. Recommends starting IV dexamethasone 6 mg IV daily. - PE unlikely given chronic warfarin therapy, INR supratherapeutic. - CT angio showing no central PE, likely multifocal pneumonia - continue O2 maintain sat above 92%. - incentive spirometry - procal 0.12. - start on ceftriaxone and azithromycin for suspect pna - check sputum culture, check legionella antigen, check strep pneum urine ag - blood cultures prelim neg Sepsis - meets criteria based on hypotension, hypothermia, tachypnea - LA wnl - stop ceftriaxone, azithro - switch to zosyn - 1L NS bolus - BP improved Possible malignancy on CT - repeat imaging after treatment of pna Acute renal failure - Cr improving from 2.5 to 1.5 - given diarrhea and vomiting likely pre renal due to hypovolemia - UA wnl - CT showing 9mm stone, mild hydronephrosis, per urology likely not cause of acute renal failure, given lack of pain - will repeat renal US in am - s/p 1500 NS bolus in ER - c/w maintenance IVF, judicious use given hx of diastolic CHF LV thrombus - per Dr. Robles, on chronic warfarin therapy - repeat echo ordered Hx of diastolic chf - chest imaging c/w fluid overload w possible pna - BNP 750, likely elevated due to covid-19, appears clinically euvolemic - echo ordered - will continue judicious use of fluids, until kidney function improves Supratherapeutic INR - INR 4.23, 4.67 - holding warfarin as supratherapetic INR - check INR daily DM2 - ISS and FSBS AC and HS - hypoglycemic precautions DVT ppx: SCDs, TEDs. Holding warfarin due to supratherapeutic INR. VS, I&O, 24H, Fishbone Vital Signs/I&O Vital Signs Date Time Temp Pulse Resp B/P (MAP) Pulse Ox O2 Delivery O2 Flow Rate FiO2 12/14/20 20:00 6.0 12/14/20 20:00 97.0 76 22 114/60 (78) 92 High Flow Cannula I&O- Last 24 Hours up to 6 AM 12/14/20 06:00 Intake Total 3115 ml Output Total 2050 ml Balance 1065 ml Laboratory Data 24H LABS Laboratory Tests 2 12/14/20 05:42: Bedside Glucose (Misc Panel) 133H 12/14/20 09:01: Neutrophils (%) (Auto) , Nucleated Red Blood Cells % (auto) 0.0, Neutrophils 78H, Band Neutrophils 1, Lymphocytes (Manual) 11L, Monocytes (Manual) 4, Basophils (Manual) 1, Atypical Lymphocytes 5, Anisocytosis 1+, Macrocytosis 1+, Platelet Estimate NORMAL, Prothrombin Time 45.1H, Prothromb Time International Ratio 4.67, Activated Partial Thromboplast Time 66.1H, Fibrinogen 608H, D-Dimer, Quantitative 474.39, Anion Gap 5L, Glomerular Filtration Rate 48.7, Calcium Level 8.1L, Magnesium Level 2.6H, Ferritin 441H, Total Bilirubin 0.5, Aspartate Amino Transf (AST/SGOT) 54H, Alanine Aminotransferase (ALT/SGPT) 20, Alkaline Phosphatase 63, Lactate Dehydrogenase 360H, Total Creatine Kinase 263, Troponin I 0.02, C-Reactive Protein, Quantitative 9.16H, Total Protein 5.5L, Albumin 2.3L, Albumin/Globulin Ratio 0.7 12/14/20 11:31: Bedside Glucose (Misc Panel) 232H 12/14/20 16:29: Bedside Glucose (Misc Panel) 165H 12/14/20 17:39: Lactic Acid Level 1.4 12/14/20 17:40: Neutrophils (%) (Auto) , Nucleated Red Blood Cells % (auto) 0.0, Neutrophils 89H, Lymphocytes (Manual) 11L, Polychromasia 1+, Poikilocytosis 1+, Anisocytosis 1+, Ovalocytes 1+, Platelet Estimate NORMAL, Anion Gap 3L, Glomerular Filtration Rate 48.3, Calcium Level 8.5L, Magnesium Level 2.4, Total Bilirubin 0.4, Aspartate Amino Transf (AST/SGOT) 44H, Alanine Aminotransferase (ALT/SGPT) 23, Alkaline Phosphatase 60, Total Protein 5.9L, Albumin 2.3L, Albumin/Globulin Ratio 0.6 12/14/20 20:10: Bedside Glucose (Misc Panel) 178H CBC/BMP Laboratory Tests 12/14/20 09:01 12/14/20 17:40 Microbiology Microbiology 12/14/20 Gram Stain - Final, Resulted 12/14/20 Sputum Culture, Resulted Pending 12/13/20 Blood Culture - Preliminary, Resulted No growth after 24 hours . All specim... 12/13/20 Blood Culture - Preliminary, Resulted No growth after 24 hours . All specim... YO MORENO MD December 14, 2020 21:52
[2020-12-15 00:16] VITALS: BP 106/48
[2020-12-15] MEDS: PIPERACILLIN/TAZOBACTAM SOD 4.5 GM in D5W MINI-BAG PLUS 50 ML IV SCH ×3 (02:01→17:05)
[2020-12-15 03:39] VITALS: BP 100/50
[2020-12-15 08:00] VITALS: BP 117/57
[2020-12-15 08:05] LABS: BASO % 0.2 % (0.0-1.0); HEMATOCRIT 40.7 % (42.0-52.0); HEMOGLOBIN 12.9 g/dl (13.5-17.5); LYMPH # 1.2 10^3/uL (1.5-5.0); LYMPH % 9.1 % (24.0-44.0); MEAN CORPUSCULAR HEMOGLOBIN 31.2 pg (27.0-33.0); MEAN CORPUSCULAR HGB CONC 31.7 g/dl (32.0-36.5); MEAN CORPUSCULAR VOLUME 98.5 fl (80.0-96.0); MONO # 0.6 10^3/uL (0.0-0.8); MONO % 4.4 % (2.0-8.0); NEUTROPHILS # 10.9 10^3/uL (1.5-8.5); NEUTROPHILS % 85.4 % (36.0-66.0); PLATELET COUNT, AUTOMATED 203 10^3/uL (150-450); RED BLOOD COUNT 4.13 10^6/uL (4.30-6.10); WHITE BLOOD COUNT 12.8 10^3/uL (4.0-10.0)
[2020-12-15 08:18] LABS: INR 4.05; PROTHROMBIN TIME 40.3 SECONDS (12.5-14.3)
[2020-12-15 08:28] LABS: ALBUMIN 2.4 GM/DL (3.2-5.2); ALT/SGPT 24 U/L (12-78); BILIRUBIN,TOTAL 0.6 MG/DL (0.2-1.0); BLOOD UREA NITROGEN 39 MG/DL (7-18); C REACTIVE PROTEIN QUANTITATIV 5.19 MG/DL (0.00-0.30); CALCIUM LEVEL 8.3 MG/DL (8.8-10.2); CARBON DIOXIDE LEVEL 27 MEQ/L (21-32); CHLORIDE LEVEL 110 MEQ/L (98-107); CPK CREATINE PHOSPHOKINASE 204 U/L (39-308); CREATININE FOR GFR 1.45 MG/DL (0.70-1.30); FERRITIN 384 NG/ML (26-388); GLOMERULAR FILTRATION RATE 50.2 (>42); GLUCOSE, FASTING 116 MG/DL (70-100); LDH LACTATE DEHYDROGENASE 387 U/L (87-241); MAGNESIUM LEVEL 2.4 MG/DL (1.8-2.4); POTASSIUM SERUM 4.8 MEQ/L (3.5-5.1); SODIUM LEVEL 142 MEQ/L (136-145); TOTAL PROTEIN 5.7 GM/DL (6.4-8.2); TROPONIN I < 0.02 NG/ML (< 0.10)
[2020-12-15] MEDS: HumaLOG INSULIN (NovoLOG) PER UNIT SC SCH ×4 (08:44→21:00)
[2020-12-15] MEDS: allopurinoL 100 MG TAB PO SCH (08:44)
[2020-12-15] MEDS: dexameTHASONE 4 MG/ML 1ML VIAL (J1100 PER 1MG) IV SCH (08:44)
[2020-12-15] MEDS: METOPROLOL SUCC *XL* 25MG TAB (TopROL *XL*) PO SCH (08:46)
[2020-12-15] MEDS: DOCUSATE SODIUM 100MG CAPSULE PO SCH ×2 (08:46→21:00)
[2020-12-15] MEDS: ASPIRIN 81MG ENTERIC TABLET PO SCH (09:23)
[2020-12-15 09:35] LABS: PARTIAL THROMBOPLASTIN TIME 55.4 SECONDS (24.2-38.5)
[2020-12-15 09:37] LABS: D-DIMER QUANT 399.2 ng/ml (<500)
--- NOTE | 2020-12-15 10:51 | IPNPDOC ---
Date Seen The patient was seen on 12/15/20. Progress Note SUBJECTIVE: no acute events OBJECTIVE PHYSICAL EXAMINATION: VITAL SIGNS: please see below General: NAD, comfortable HEENT: PERRLA, EOMI, sclerae clear Neck: supple, normal ROM, no JVD Respiratory: lungs CTAB, no wheeze, no rales, no crackles CVS: RRR, normal S1, S2, no murmurs Abdo: soft, no masses, no hepatosplenomegaly, BS+, no rebound tenderness Extremities: no edema, pulses 2+ MSK: no joint deformities, normal ROM Neuro: no focal neuro deficits, moving all 4 extremities, CN2-12 intact. Strength 5/5 in all 4 extremities. No nystagmus. Psych: calm, cooperative, AAO x 3 LABORATORY DATA, IMAGING STUDIES, MICROBIOLOGY: Please see below. Venous duplex b/l (12/13/20: No sonographic evidence of deep vein thrombosis. CTA chest (12/14/20): 1. Slightly limited evaluation of the peripheral pulmonary arteries. No central pulmonary arterial embolism is identified. 2. Findings consistent with bilateral multifocal pneumonia in the proper clinical setting. Other underlying pulmonary lesions including malignancy cannot be completely excluded. Follow-up CT scan of the chest is recommended to confirm resolution. Echocardiogram: ordered, pending DVT prophylaxis ordered?: INR supratherapeutic ASSESSMENT AND PLAN: 75 yo M with a hx of HTN, CAD s/p DC, LV thrombus on warfarin, DM2, HLD, recently diagnosed with covi-19 (quarantine ended on 12/11/20, without hospitilization), presented to the ER from his PCP office for shortness of breath and hypoxia. PLAN: Dyspnea with hypoxic possible 2/2 post covid syndrome vs superimposed bacterial pna - tested positive for covid on 12/01/20, quarantine ended on 12/13/20. No additional testing performed in ER - inflammatory markers elevated - discussed with Dr. Ellis, having persistent symptoms of covid. out of Remde sevir window. Recommends starting IV dexamethasone 6 mg IV daily. - PE unlikely given chronic warfarin therapy, INR supratherapeutic. - CT angio showing no central PE, likely multifocal pneumonia - continue O2 maintain sat above 92%.O2 requirement slightly improved to 3L NC. - incentive spirometry - procal 0.12. - s/p ceftriazone and azithromycin (2 days), switched to zosyn on 12/14/20 for suspected sepsis likely pulmonary soruce - check sputum culture, check legionella antigen, check strep pneum urine ag - blood cultures prelim neg Sepsis - meets criteria based on hypotension, hypothermia, tachypnea - LA wnl - stop ceftriaxone, azithro - leukocytosis noted today, likely 2/2 steroid use vs pneumonia - switch to zosyn - 1L NS bolus - BP improved Possible malignancy on CT - repeat imaging after treatment of pna Acute renal failure - Cr improving from 2.5 to 1.5 - possible small vessel vasculitis 2/2 covid - given diarrhea and vomiting likely pre renal due to hypovolemia - check GI panel - UA wnl - CT showing 9mm stone, mild hydronephrosis, per urology likely not cause of acute renal failure, given lack of pain - will repeat renal US in am - s/p 1500 NS bolus in ER - c/w maintenance IVF, judicious use given hx of diastolic CHF LV thrombus - per Dr. Robles, on chronic warfarin therapy - repeat echo ordered Hx of diastolic chf - chest imaging c/w fluid overload w possible pna - BNP 750, likely elevated due to covid-19, appears clinically euvolemic - echo ordered - will continue judicious use of fluids, until kidney function improves Supratherapeutic INR - INR 4.23, 4.67 - holding warfarin as supratherapetic INR - check INR daily, - improved today to 4.0 - continue to hold warfarin DM2 - ISS and FSBS AC and HS - hypoglycemic precautions DVT ppx: SCDs, TEDs. Holding warfarin due to supratherapeutic INR. VS, I&O, 24H, Fishbone Vital Signs/I&O Vital Signs Date Time Temp Pulse Resp B/P (MAP) Pulse Ox O2 Delivery O2 Flow Rate FiO2 12/15/20 09:59 96 Nasal Cannula 3.0 12/15/20 08:46 68 117/57 12/15/20 08:00 95.9 20 I&O- Last 24 Hours up to 6 AM 12/15/20 06:00 Intake Total 5180 ml Output Total 2650 ml Balance 2530 ml Laboratory Data 24H LABS Laboratory Tests 2 12/14/20 11:31: Bedside Glucose (Misc Panel) 232H 12/14/20 16:29: Bedside Glucose (Misc Panel) 165H 12/14/20 17:39: Lactic Acid Level 1.4 12/14/20 17:40: Neutrophils (%) (Auto) , Nucleated Red Blood Cells % (auto) 0.0, Neutrophils 89H, Lymphocytes (Manual) 11L, Polychromasia 1+, Poikilocytosis 1+, Anisocytosis 1+, Ovalocytes 1+, Platelet Estimate NORMAL, Anion Gap 3L, Glomerular Filtration Rate 48.3, Calcium Level 8.5L, Magnesium Level 2.4, Total Bilirubin 0.4, Aspartate Amino Transf (AST/SGOT) 44H, Alanine Aminotransferase (ALT/SGPT) 23, Alkaline Phosphatase 60, Total Protein 5.9L, Albumin 2.3L, Albumin/Globulin Ratio 0.6 12/14/20 20:10: Bedside Glucose (Misc Panel) 178H 12/15/20 06:59: Immature Granulocyte % (Auto) 0.9, Neutrophils (%) (Auto) 85.4H, Lymphocytes (%) (Auto) 9.1L, Monocytes (%) (Auto) 4.4, Eosinophils (%) (Auto) 0.0, Basophils (%) (Auto) 0.2, Neutrophils # (Auto) 10.9H, Lymphocytes # (Auto) 1.2L, Monocytes # (Auto) 0.6, Eosinophils # (Auto) 0.0, Basophils # (Auto) 0.0, Nucleated Red Blood Cells % (auto) 0.0, Prothrombin Time 40.3H, Prothromb Time International Ratio 4.05, Activated Partial Thromboplast Time 55.4H, Fibrinogen 540H, D-Dimer, Quantitative 399.20, Anion Gap 5L, Glomerular Filtration Rate 50.2, Calcium Level 8.3L, Magnesium Level 2.4, Ferritin 384, Total Bilirubin 0.6, Aspartate Amino Transf (AST/SGOT) 53H, Alanine Aminotransferase (ALT/SGPT) 24, Alkaline Phosphatase 63, Lactate Dehydrogenase 387H, Total Creatine Kinase 204, Troponin I < 0.02, C-Reactive Protein, Quantitative 5.19H, Total Protein 5.7L, Albumin 2.4L, Albumin/Globulin Ratio 0.7 CBC/BMP Laboratory Tests 12/14/20 17:40 12/15/20 06:59 Microbiology Microbiology 12/14/20 Gram Stain - Final, Resulted 12/14/20 Sputum Culture, Resulted Pending 12/13/20 Blood Culture - Preliminary, Resulted No Growth after 48 hours. All Specime... 12/13/20 Blood Culture - Preliminary, Resulted No Growth after 48 hours. All Specime... YO MORENO MD December 15, 2020 10:51
--- NOTE | 2020-12-15 11:02 | REP ---
INDICATION: hydronephrosis. COMPARISON: CT 12/13/2020. TECHNIQUE: Real-time sonographic evaluation of the kidneys is performed. FINDINGS: Renal cortical echogenicity pattern is normal bilaterally and contours are smooth. There is mild dilatation of the right renal pelvis without caliceal dilatation. There is no hydronephrosis of the left kidney. No large renal stone is seen. There is 1.6 cm cyst in the mid right kidney. The right kidney measures 10.9 x 5.4 x 5.5 cm. Left renal dimensions are 10.9 x 4.7 x 4.9 cm. The urinary bladder is unremarkable. IMPRESSION: Mild dilatation of the right renal pelvis may represent an extrarenal pelvis. There is no caliceal dilatation. <Electronically signed by Cory Howell > 12/15/20 [id number]
[2020-12-15] MEDS: NS 1,000 ML IV SCH (13:34)
[2020-12-15 16:00] VITALS: BP 119/66
[2020-12-15 20:09] VITALS: BP 116/76
[2020-12-15] MEDS: EZETIMIBE 10 MG TAB (ZETIA) PO SCH (20:11)
[2020-12-15] MEDS: PRAVASTATIN 20 MG TAB PO SCH (20:11)
[2020-12-16] MEDS: PIPERACILLIN/TAZOBACTAM SOD 4.5 GM in D5W MINI-BAG PLUS 50 ML IV SCH ×2 (02:07→09:11)
[2020-12-16] MEDS: NS 1,000 ML IV SCH (02:07)
[2020-12-16 04:07] VITALS: BP 123/58
[2020-12-16 07:04] LABS: BASO % 0.2 % (0.0-1.0); HEMATOCRIT 40.2 % (42.0-52.0); HEMOGLOBIN 12.5 g/dl (13.5-17.5); LYMPH # 1.1 10^3/uL (1.5-5.0); LYMPH % 8.3 % (24.0-44.0); MEAN CORPUSCULAR HEMOGLOBIN 30.8 pg (27.0-33.0); MEAN CORPUSCULAR HGB CONC 31.1 g/dl (32.0-36.5); MONO # 0.7 10^3/uL (0.0-0.8); MONO % 5.1 % (2.0-8.0); NEUTROPHILS # 11.3 10^3/uL (1.5-8.5); NEUTROPHILS % 85.3 % (36.0-66.0); PLATELET COUNT, AUTOMATED 197 10^3/uL (150-450); RED BLOOD COUNT 4.06 10^6/uL (4.30-6.10); WHITE BLOOD COUNT 13.2 10^3/uL (4.0-10.0)
[2020-12-16 07:14] LABS: INR 2.89; PROTHROMBIN TIME 30.9 SECONDS (12.5-14.3)
[2020-12-16 07:30] LABS: ALBUMIN 2.4 GM/DL (3.2-5.2); BILIRUBIN,TOTAL 0.9 MG/DL (0.2-1.0); CALCIUM LEVEL 8.1 MG/DL (8.8-10.2); CREATININE FOR GFR 1.41 MG/DL (0.70-1.30); GLOMERULAR FILTRATION RATE 51.9 (>42); MAGNESIUM LEVEL 2.3 MG/DL (1.8-2.4); POTASSIUM SERUM 4.6 MEQ/L (3.5-5.1); TOTAL PROTEIN 5.4 GM/DL (6.4-8.2)
[2020-12-16] MEDS: HumaLOG INSULIN (NovoLOG) PER UNIT SC SCH ×4 (07:30→20:11)
[2020-12-16] MEDS: DOCUSATE SODIUM 100MG CAPSULE PO SCH ×2 (07:40→20:10)
[2020-12-16] MEDS: dexameTHASONE 4 MG/ML 1ML VIAL (J1100 PER 1MG) IV SCH (08:34)
[2020-12-16] MEDS: allopurinoL 100 MG TAB PO SCH (08:34)
[2020-12-16] MEDS: ASPIRIN 81MG ENTERIC TABLET PO SCH (08:34)
[2020-12-16 08:36] VITALS: BP 112/60
[2020-12-16] MEDS: METOPROLOL SUCC *XL* 25MG TAB (TopROL *XL*) PO SCH (08:36)
--- NOTE | 2020-12-16 09:44 | IPN ---
PROGRESS NOTE DATE: 12/16/2020 SUBJECTIVE: El is seen with COVID pneumonia. He is feeling progressively better. He is not short of breath anymore. He is wearing supplemental oxygen. He has no chest pain, fever or chills. OBJECTIVE: VITAL SIGNS: Afebrile. Vital signs are stable. Temperature is 96.4, O2 saturation 94% on 2 liters, blood pressure 123/58. GENERAL APPEARANCE: Alert, conversant, in no distress. LUNGS: Entirely clear. HEART: Regular rate and rhythm. ABDOMEN: Soft, nontender, no peripheral edema. LABORATORY DATA: White count 13.2, hemoglobin 12.5, platelets 197,000, sodium 144, potassium 4.6, BUN 29, creatinine 1.4 which is baseline. INR is 2.89. IMPRESSION: 1. COVID pneumonia. He is on IV Dexamethasone, he is outside the Remdesivir window. Currently on Zosyn for suspected sepsis from pulmonary source, mildly elevated procalcitonin. Blood cultures are pending. 2. ? pulmonary malignancy. They do make a mention that "malignancy cannot be excluded" which I guess is generally true with most severe pneumonias and follow-up CT as an outpatient is recommended and his primary care provider, [facility] Torre can attend to this. 3. Acute renal failure. Creatinine is down to baseline. Renal ultrasound did not show any significant problems. We are going to discontinue his IV fluids. 4. History of left ventricular thrombus (chronic). INR is down to therapeutic range, probably restart Warfarin tomorrow. 5. History of congestive heart failure with preserved ejection fraction. Appears euvolemic. An echocardiogram has been ordered, results are pending. IV fluids to be discontinued. 6. Diabetes, sliding scale insulin coverage. 7. I need to restart Warfarin tomorrow once his INR is down to the lower end of therapeutic range.
[2020-12-16] MEDS: FUROSEMIDE 20 MG TAB PO SCH (12:18)
[2020-12-16 12:20] VITALS: BP 116/60
[2020-12-16 12:49] VITALS: BP 118/58
[2020-12-16] MEDS: PIPERACILLIN/TAZOBACTAM SOD 3.375 GM in D5W MINI-BAG PLUS 50 ML IV SCH ×2 (12:58→18:09)
[2020-12-16] MEDS: BENAZEPRIL 20 MG TAB PO SCH (12:58)
[2020-12-16 16:00] VITALS: BP 102/50
[2020-12-16 20:00] VITALS: BP 127/65
[2020-12-16] MEDS: PRAVASTATIN 20 MG TAB PO SCH (20:06)
[2020-12-16] MEDS: EZETIMIBE 10 MG TAB (ZETIA) PO SCH (20:06)
[2020-12-17] MEDS: PIPERACILLIN/TAZOBACTAM SOD 3.375 GM in D5W MINI-BAG PLUS 50 ML IV SCH ×3 (00:27→12:08)
[2020-12-17 06:00] VITALS: BP 126/61
[2020-12-17] MEDS: HumaLOG INSULIN (NovoLOG) PER UNIT SC SCH ×2 (07:30→11:55)
[2020-12-17 07:34] VITALS: BP 130/61
[2020-12-17] MEDS: DOCUSATE SODIUM 100MG CAPSULE PO SCH (07:34)
[2020-12-17] MEDS: allopurinoL 100 MG TAB PO SCH (08:32)
[2020-12-17] MEDS: FUROSEMIDE 20 MG TAB PO SCH (08:32)
[2020-12-17] MEDS: dexameTHASONE 4 MG/ML 1ML VIAL (J1100 PER 1MG) IV SCH (08:32)
[2020-12-17] MEDS: ASPIRIN 81MG ENTERIC TABLET PO SCH (08:32)
[2020-12-17 08:33] VITALS: BP 130/61
[2020-12-17] MEDS: METOPROLOL SUCC *XL* 25MG TAB (TopROL *XL*) PO SCH (08:33)
[2020-12-17] MEDS: BENAZEPRIL 20 MG TAB PO SCH (08:33)
[2020-12-17 08:50] LABS: BASO % 0.3 % (0.0-1.0); HEMATOCRIT 40.7 % (42.0-52.0); LYMPH # 1.2 10^3/uL (1.5-5.0); LYMPH % 11.8 % (24.0-44.0); MEAN CORPUSCULAR HEMOGLOBIN 31.3 pg (27.0-33.0); MEAN CORPUSCULAR HGB CONC 31.9 g/dl (32.0-36.5); MEAN CORPUSCULAR VOLUME 97.8 fl (80.0-96.0); MONO # 0.4 10^3/uL (0.0-0.8); MONO % 3.9 % (2.0-8.0); NEUTROPHILS # 8.6 10^3/uL (1.5-8.5); NEUTROPHILS % 82.9 % (36.0-66.0); PLATELET COUNT, AUTOMATED 188 10^3/uL (150-450); RED BLOOD COUNT 4.16 10^6/uL (4.30-6.10); WHITE BLOOD COUNT 10.3 10^3/uL (4.0-10.0)
[2020-12-17 09:13] LABS: INR 2.07; PROTHROMBIN TIME 23.8 SECONDS (12.5-14.3)
[2020-12-17 09:14] LABS: ALBUMIN 2.5 GM/DL (3.2-5.2); BILIRUBIN,TOTAL 1.3 MG/DL (0.2-1.0); CALCIUM LEVEL 8.6 MG/DL (8.8-10.2); CREATININE FOR GFR 1.51 MG/DL (0.70-1.30); GLOMERULAR FILTRATION RATE 47.9 (>42); MAGNESIUM LEVEL 2.1 MG/DL (1.8-2.4); POTASSIUM SERUM 4.3 MEQ/L (3.5-5.1); TOTAL PROTEIN 6.1 GM/DL (6.4-8.2)
[2020-12-17] MEDS ORDERED: AUGM875T28 PO (09:53)
--- NOTE | 2020-12-17 10:14 | ECHO ---
DATE OF PROCEDURE: 12/14/2020 Age: 75 Gender: Male Height: 63 inches Weight: 216 pounds REFERRING PHYSICIAN: Adalid Dalton MD INDICATION: Dyspnea. MEASUREMENTS: IVS 1.0 cm LV 5.1 cm LVPW 1.1 cm LA 4.5 cm Aorta 3.2 cm IVC 2.4 cm RV 3.2 cm Mitral E wave velocity 59 cm/s Mitral A wave 98 cm/s E prime septal 6.5 cm/s E prime lateral 7.4 cm/s FINDINGS: This study is of very limited technical quality with limited visualization. Underlying sinus rhythm. Left ventricle is normal size. There appears to be wall motion abnormality involving apex, distal anterior wall, distal septum, and distal inferior wall. These segments appear to be at least severely hypokinetic if not akinetic, but unfortunately the quality of images is so poor that I cannot be more specific; but I do estimate that the left ventricular systolic function is at least moderately if not severely reduced. The right ventricle was poorly visualized. Both atria appear at least moderately enlarged. Aortic valve is sclerotic. It appears to have preserved mobility. Mitral and tricuspid valves appear normal. Pulmonic valve also appears normal. No pericardial effusion is noted. Inferior vena cava is dilated and there is no appreciable collapse with inspiration indicative of high central venous pressure. Doppler interrogation of the aortic valve reveals no insufficiency and trivial stenosis with mean gradient 8 mmHg. There is no significant mitral stenosis or insufficiency. Evaluation of right-sided valve was rather limited due to poor visualization, but no gross valvular dysfunction is appreciated. Mitral inflow pattern and tissue Doppler imaging of the mitral annulus revealed grade 1 diastolic dysfunction. CONCLUSIONS: 1. Study is of markedly limited technical quality. Underlying sinus rhythm. 2. Normal LV size with anterior apical wall motion abnormality and at least moderately if not severely reduced LV systolic function. Grade 1 diastolic dysfunction. I cannot rule out the presence of left apical thrombus. Right ventricle was poorly visualized. 3. Aortic sclerosis with trivial stenosis and no insufficiency. 4. No significant mitral valvular disease. 5. Likely high central venous pressure, but unable to estimate pulmonary artery pressure. MTDD
--- NOTE | 2020-12-17 10:57 | DSES ---
DISCHARGE SUMMARY DATE OF ADMISSION: 12/13/2020 DATE OF DISCHARGE: 12/17/2020 PRINCIPAL DIAGNOSIS: Pneumonia associated with COVID-19 infection. SECONDARY DIAGNOSES: 1. Acute kidney injury. 2. History of left ventricular thrombus. 3. Excess anticoagulation. HISTORY: Patient was admitted with COVID pneumonia. Details per history and physical upon admission. HOSPITAL COURSE: Admitted to the COVID Unit. Not a candidate for Remdesivir due to being outside the window for this. He was treated with IV dexamethasone. He was thought to have a secondary bacterial infection and was given Zosyn intravenously. Procalcitonin level was low, but he did respond to antibiotics so these were continued. His INR was supratherapeutic at 4.67. His warfarin was held. His INR was therapeutic on discharge. Had some acute kidney injury which resolved with hydration. Creatinine was 2.28 on admission and is back to baseline at 1.5 now. On the day of discharge, he is resting comfortably. He still requires supplemental oxygen. His O2 saturation was 83% on room air, goes up to 91% on 2 liters. He feels well. PHYSICAL EXAMINATION: LUNGS: Entirely clear. HEART: Regular rhythm. ABDOMEN: Soft, nontender. No masses. EXTREMITIES: No peripheral edema. SKIN: No rash. LABORATORY DATA: Labs today: White count 10.3 on steroids, hemoglobin 13, platelets 188. Sodium 141, potassium 4.3, BUN 27, creatinine 1.5, glucose 121. INR today is 2.07. Blood sugars have been generally around 100 to 150. The "rapid" diagnostic studies of urine for Strep pneumoniae and urine for legionella are all pending now, four days after being ordered. Blood cultures are negative. Sputum culture showed normal marquita. DISPOSITION: Patient was discharged home in improve and stable condition. He will follow up with [facility] Torre, his primary care provider in the [place] office. [facility] Espinosa, will do phone follow up prior to that appointment. MEDICATIONS ON DISCHARGE: Augmentin 875 mg b.i.d. for five more days. Otherwise, he will continue: 1. Allopurinol 100 mg daily. 2. Aspirin 81 mg daily. 3. Benazepril 20 mg daily. 4. Ezetimibe 10 mg daily. 5. Furosemide 20 mg daily. 6. Metoprolol succinate 25 mg daily. 7. Pravastatin 20 mg daily. 8. Warfarin 7.5 mg Thursday, Thursday, Thursday, and Thursday. 9. Warfarin 5 mg Thursday, , and Thursday. He is done with his steroid therapy. His only new medication is his Augmentin. He is being discharged on 2 liters nasal cannula. He is being discharged with [facility] referral. Needs INR in [place] office in 2 days,pt and PCP (Kiel MOYER) both aware MTDD
[2020-12-17 17:07] LABS: BODY FLUID CULTURE Not indicated. (.); LEGIONELLA ANTIGEN URINE Negative (Negative); ORGANISM ID Not indicated. (.); SPECIMEN SOURCE Urine (.); URINE STREP PNEUMONIAE ANTIGEN Negative (Negative)
== END 2020-12-17 14:06 | disposition home health service (06) | DRG 871 ==
LOC: M ED 09:13 → M ED INP 15:56 → ENRESERV 16:40 → M 4MAIN 17:04
PROVIDERS: ADMIT Family Medicine; ATTEND Family Medicine
DX: A41.9 Sepsis, unspecified organism (principal); J15.9 Unspecified bacterial pneumonia; J12.82 Pneumonia due to coronavirus disease 2019; U07.1 COVID-19; I50.33 Acute on chronic diastolic (congestive) heart failure; N17.9 Acute kidney failure, unspecified; R09.02 Hypoxemia; E11.9 Type 2 diabetes mellitus without complications; B94.8 Sequelae of other specified infectious and parasitic diseases; Z79.82 Long term (current) use of aspirin; Z79.899 Other long term (current) drug therapy; M10.9 Gout, unspecified; N40.0 Benign prostatic hyperplasia without lower urinary tract symptoms; I25.10 Atherosclerotic heart disease of native coronary artery without angina pectoris; I25.2 Old myocardial infarction; Z87.891 Personal history of nicotine dependence; Z79.01 Long term (current) use of anticoagulants; I51.3 Intracardiac thrombosis, not elsewhere classified; I11.0 Hypertensive heart disease with heart failure

== ENCOUNTER → 2020-12-19 | Outpatient (REF) | payer MEDICARE ==
[~2020-12-19] MED LIST changes: +ALLO100T PO; +ASPI81TA28 PO; +AUGM875T28 PO; +EZET10TA21 PO; +METO1TAB7 PO; +WARF-18 PO
[2020-12-19 17:19] LABS: INR 2.25; PROTHROMBIN TIME 25.4 SECONDS (12.5-14.3)
== END ==
LOC: M SFHCADAM 11:48
PROVIDERS: ATTEND Family Medicine
DX: Z79.01 Long term (current) use of anticoagulants (principal)

== ENCOUNTER → 2020-12-27 | Outpatient (REF) | payer MEDICARE ==
[2020-12-27 13:26] LABS: ALBUMIN 3.2 GM/DL (3.2-5.2); BILIRUBIN,TOTAL 0.8 MG/DL (0.2-1.0); CALCIUM LEVEL 9.4 MG/DL (8.8-10.2); CREATININE FOR GFR 1.27 MG/DL (0.70-1.30); GLOMERULAR FILTRATION RATE 58.5 (>42); POTASSIUM SERUM 4.5 MEQ/L (3.5-5.1); TOTAL PROTEIN 6.4 GM/DL (6.4-8.2)
== END ==
LOC: M SFHCADAM 09:50
PROVIDERS: ATTEND Family Medicine
DX: R93.89 Abnormal findings on diagnostic imaging of other specified body structures (principal)

== ENCOUNTER → 2021-01-14 | Outpatient (REF) | payer MEDICARE ==
[2021-01-14 14:16] LABS: INR 2.45; PROTHROMBIN TIME 27.1 SECONDS (12.5-14.3)
== END ==
LOC: M LABDRWAD 13:33
PROVIDERS: ATTEND Physician Assistant
DX: I23.6 Thrombosis of atrium, auricular appendage, and ventricle as current complications following acute myocardial infarction (principal)

== ENCOUNTER → 2021-01-14 | Outpatient (REF) | payer MEDICARE ==
[2021-01-14 14:27] LABS: ALBUMIN 3.4 GM/DL (3.2-5.2); CALCIUM LEVEL 9.2 MG/DL (8.8-10.2); CHOLESTEROL RISK RATIO 3.45 (<5); CREATININE FOR GFR 1.32 MG/DL (0.70-1.30); MAGNESIUM LEVEL 2.1 MG/DL (1.8-2.4); POTASSIUM SERUM 4.6 MEQ/L (3.5-5.1); TOTAL PROTEIN 6.4 GM/DL (6.4-8.2)
[2021-01-14 15:20] LABS: HEMOGLOBIN A1c 5.5 %
== END ==
LOC: M SFHCPLAZ 11:37 → M SFHCADAM 11:42
PROVIDERS: ATTEND Physician Assistant
DX: I10 Essential (primary) hypertension (principal); I25.10 Atherosclerotic heart disease of native coronary artery without angina pectoris; E78.2 Mixed hyperlipidemia; E11.9 Type 2 diabetes mellitus without complications; E61.2 Magnesium deficiency; I23.6 Thrombosis of atrium, auricular appendage, and ventricle as current complications following acute myocardial infarction

== ENCOUNTER → 2021-01-25 | Outpatient (CLI) | payer MEDICARE ==
[~2021-01-25] MED LIST changes: +ISOVUE-370 76% 100ML VIAL As Ordered ONE
--- NOTE | 2021-01-25 14:47 | REP ---
INDICATION: ABNORMAL CT SCAN COMPARISON: Multiple the latest 12/14/2020 TECHNIQUE: Standard helical technique without the administration of intravenous contrast. FINDINGS: The mediastinum and pulmonary margarita are unchanged. Multiple nonenlarged lymph nodes are noted status quo. There are no pleural or pericardial effusions. There is no change in the imaged upper abdomen. Note is again made of cholelithiasis. There is no change in the imaged osseous structures. Spinal degenerative changes are noted status quo. Evaluation of the lung mcginnis shows marked and significant improvement in the previously present rather widespread diffuse airspace and interstitial opacities. No new abnormal nodules, masses, or opacities have developed. IMPRESSION: Significant lung field improvement and other findings as described above. I would suggest an additional follow-up to ensure complete resolution. This could be obtained in 2-3 months. <Electronically signed by El Gipson > 01/25/21 [id number]
== END ==
LOC: M RAD 13:21
PROVIDERS: ATTEND Family Medicine
DX: R93.89 Abnormal findings on diagnostic imaging of other specified body structures (principal)
CPT/HCPCS: 71260; Q9967

== ENCOUNTER → 2021-04-18 | Outpatient (REF) | payer MEDICARE ==
[~2021-04-18] MED LIST changes: -ISOVUE-370 76% 100ML VIAL As Ordered ONE
[2021-04-18 11:41] LABS: HEMOGLOBIN A1c 5.9 %
[2021-04-18 11:50] LABS: ALBUMIN 3.3 GM/DL (3.2-5.2); BILIRUBIN,TOTAL 0.7 MG/DL (0.2-1.0); CALCIUM LEVEL 8.9 MG/DL (8.8-10.2); CHOLESTEROL RISK RATIO 4.472 (<5); CREATININE FOR GFR 1.39 MG/DL (0.70-1.30); GLOMERULAR FILTRATION RATE 52.7 (>42); MAGNESIUM LEVEL 2.3 MG/DL (1.8-2.4); POTASSIUM SERUM 4.2 MEQ/L (3.5-5.1); TOTAL PROTEIN 6.5 GM/DL (6.4-8.2)
== END ==
LOC: M SFHCADAM 08:36
PROVIDERS: ATTEND Physician Assistant
DX: I10 Essential (primary) hypertension (principal); I25.10 Atherosclerotic heart disease of native coronary artery without angina pectoris; E78.2 Mixed hyperlipidemia; E11.9 Type 2 diabetes mellitus without complications; E61.2 Magnesium deficiency; Z12.5 Encounter for screening for malignant neoplasm of prostate
CPT/HCPCS: 80053; 80061; 83036; 83735; G0103

== ENCOUNTER → 2021-04-23 | Outpatient (CLI) | payer MEDICARE ==
[~2021-04-23] MED LIST changes: +ISOVUE-370 76% 100ML VIAL As Ordered ONE
--- NOTE | 2021-04-23 15:25 | REP ---
INDICATION: ABN CHEST CT H/O COVID-19 COMPARISON: Multiple the latest 01/25/2021 TECHNIQUE: Standard helical technique after the intravenous administration of 100 cc Isovue 370. FINDINGS: The mediastinum and pulmonary margarita are essentially unchanged. No mass or adenopathy has developed. There are no pleural or pericardial effusions. There is no significant change in appearance of the imaged upper abdomen or imaged osseous structures. Evaluation of the lung mcginnis shows resolution of the previously present airspace opacities. There is evidence of bibasilar fibrotic change status quo. No new abnormal nodules, masses, or opacities have developed. IMPRESSION: There is no evidence of acute disease. Findings as described above. <Electronically signed by El Gipson > 04/23/21 [id number]
== END ==
LOC: M RAD 13:48
PROVIDERS: ATTEND Family Medicine
DX: R93.89 Abnormal findings on diagnostic imaging of other specified body structures (principal); Z86.16 Personal history of COVID-19
CPT/HCPCS: 71260; Q9967

== ENCOUNTER → 2022-04-08 | Outpatient (REF) | payer MEDICARE ==
[~2022-04-08] MED LIST changes: +BENA-8 PO; -BENA20TA8 PO; -ISOVUE-370 76% 100ML VIAL As Ordered ONE
[2022-04-08 18:00] LABS: INR 3.35; PROTHROMBIN TIME 34.2 SECONDS (12.7-14.5)
== END ==
LOC: M LABDRWAD 16:56
PROVIDERS: ATTEND Physician Assistant
DX: I23.6 Thrombosis of atrium, auricular appendage, and ventricle as current complications following acute myocardial infarction (principal); Z79.01 Long term (current) use of anticoagulants

== ENCOUNTER → 2022-04-08 | Outpatient (REF) | payer MEDICARE ==
[2022-04-08 17:41] LABS: BASO # 0.1 10^3/uL (0.0-0.2); EOS # 0.2 10^3/uL (0.0-0.5); EOS % 3.1 % (0.0-3.0); HEMATOCRIT 50.7 % (42.0-52.0); HEMOGLOBIN 16.3 g/dl (13.5-17.5); LYMPH # 1.8 10^3/uL (1.5-5.0); LYMPH % 28.5 % (24.0-44.0); MEAN CORPUSCULAR HEMOGLOBIN 30.9 pg (27.0-33.0); MEAN CORPUSCULAR HGB CONC 32.1 g/dl (32.0-36.5); MEAN CORPUSCULAR VOLUME 96.2 fl (80.0-96.0); MONO # 0.6 10^3/uL (0.0-0.8); MONO % 9.1 % (2.0-8.0); NEUTROPHILS # 3.6 10^3/uL (1.5-8.5); PLATELET COUNT, AUTOMATED 137 10^3/uL (150-450); RED BLOOD COUNT 5.27 10^6/uL (4.30-6.10); WHITE BLOOD COUNT 6.2 10^3/uL (4.0-10.0)
[2022-04-08 18:28] LABS: ALBUMIN 3.9 GM/DL (3.2-5.2); BILIRUBIN,TOTAL 0.9 MG/DL (0.2-1.0); CREATININE FOR GFR 1.5 MG/DL (0.70-1.30); GLOMERULAR FILTRATION RATE 48.2 (>42); POTASSIUM SERUM 4.3 MEQ/L (3.5-5.1); TOTAL PROTEIN 7.1 GM/DL (6.4-8.2)
== END ==
LOC: M SFHCADAM 13:44
PROVIDERS: ATTEND Family Medicine
DX: Z01.818 Encounter for other preprocedural examination (principal)

== ENCOUNTER → 2022-05-07 | Outpatient (CLI) | payer MEDICARE ==
[2022-05-07 17:49] LABS: BASO # 0.1 10^3/uL (0.0-0.2); BASO % 0.3 % (0.0-1.0); EOS # 0.1 10^3/uL (0.0-0.5); HEMATOCRIT 45.5 % (42.0-52.0); HEMOGLOBIN 14.6 g/dl (13.5-17.5); LYMPH # 1.7 10^3/uL (1.5-5.0); LYMPH % 11.3 % (24.0-44.0); MEAN CORPUSCULAR HEMOGLOBIN 30.9 pg (27.0-33.0); MEAN CORPUSCULAR HGB CONC 32.1 g/dl (32.0-36.5); MEAN CORPUSCULAR VOLUME 96.4 fl (80.0-96.0); MONO # 0.7 10^3/uL (0.0-0.8); MONO % 4.7 % (2.0-8.0); NEUTROPHILS # 11.9 10^3/uL (1.5-8.5); NEUTROPHILS % 81.6 % (36.0-66.0); PLATELET COUNT, AUTOMATED 211 10^3/uL (150-450); RED BLOOD COUNT 4.72 10^6/uL (4.30-6.10); WHITE BLOOD COUNT 14.6 10^3/uL (4.0-10.0)
[2022-05-07 18:28] LABS: ERYTHROCYTE SEDIMENTATION RATE 46 mm/hr (0-20)
[2022-05-07 18:42] LABS: ALBUMIN 2.8 GM/DL (3.2-5.2); BILIRUBIN,TOTAL 1.6 MG/DL (0.2-1.0); C REACTIVE PROTEIN QUANTITATIV 20.9 MG/DL (0.00-0.30); CALCIUM LEVEL 8.9 MG/DL (8.8-10.2); CREATININE FOR GFR 1.66 MG/DL (0.70-1.30); GLOMERULAR FILTRATION RATE 42.9 (>42); TOTAL PROTEIN 6.3 GM/DL (6.4-8.2)
== END ==
LOC: M PLALAB 14:42
PROVIDERS: ATTEND Physician Assistant
DX: B34.9 Viral infection, unspecified (principal); R50.9 Fever, unspecified

== ENCOUNTER → 2022-05-20 | Outpatient (CLI) | payer MEDICARE | LOC: M WHC 07:10 | PROVIDERS: ATTEND Physician Assistant | DX: R17 Unspecified jaundice (principal); R10.9 Unspecified abdominal pain; R89.8 Other abnormal findings in specimens from other organs, systems and tissues ==

== ENCOUNTER → 2022-05-27 | Outpatient (REF) | payer MEDICARE ==
[2022-05-27 18:17] LABS: BASO # 0.1 10^3/uL (0.0-0.2); EOS # 0.2 10^3/uL (0.0-0.5); EOS % 2.8 % (0.0-3.0); HEMATOCRIT 47.6 % (42.0-52.0); HEMOGLOBIN 14.8 g/dl (13.5-17.5); LYMPH # 1.8 10^3/uL (1.5-5.0); LYMPH % 30.5 % (24.0-44.0); MEAN CORPUSCULAR HEMOGLOBIN 30.6 pg (27.0-33.0); MEAN CORPUSCULAR HGB CONC 31.1 g/dl (32.0-36.5); MEAN CORPUSCULAR VOLUME 98.6 fl (80.0-96.0); MONO # 0.6 10^3/uL (0.0-0.8); MONO % 9.4 % (2.0-8.0); NEUTROPHILS # 3.4 10^3/uL (1.5-8.5); NEUTROPHILS % 56.1 % (36.0-66.0); PLATELET COUNT, AUTOMATED 151 10^3/uL (150-450); RED BLOOD COUNT 4.83 10^6/uL (4.30-6.10)
[2022-05-27 19:17] LABS: ALBUMIN 3.2 GM/DL (3.2-5.2); BILIRUBIN,TOTAL 1.1 MG/DL (0.2-1.0); CALCIUM LEVEL 8.9 MG/DL (8.8-10.2); CREATININE FOR GFR 1.6 MG/DL (0.70-1.30); GLOMERULAR FILTRATION RATE 44.7 (>42); POTASSIUM SERUM 3.9 MEQ/L (3.5-5.1); TOTAL PROTEIN 6.5 GM/DL (6.4-8.2)
[2022-05-27 21:06] LABS: HEMOGLOBIN A1c 5.9 %
== END ==
LOC: M SFHCADAM 08:54
PROVIDERS: ATTEND Family Medicine
DX: E11.9 Type 2 diabetes mellitus without complications (principal); D72.829 Elevated white blood cell count, unspecified

== ENCOUNTER → 2023-03-26 | Outpatient (CLI) | payer MEDICARE | LOC: M ADAMS 15:12 | PROVIDERS: ATTEND Physician Assistant | DX: S20.212A Contusion of left front wall of thorax, initial encounter (principal); X58.XXXA Exposure to other specified factors, initial encounter; Y92.9 Unspecified place or not applicable; Y93.9 Activity, unspecified; Y99.9 Unspecified external cause status ==

== ENCOUNTER → 2023-03-26 | Outpatient (REF) | payer MEDICARE ==
[2023-03-26 18:00] LABS: BASO # 0.1 10^3/uL (0.0-0.2); BASO % 0.6 % (0.0-1.0); EOS % 0.3 % (0.0-3.0); HEMATOCRIT 52.5 % (42.0-52.0); HEMOGLOBIN 16.8 g/dl (13.5-17.5); LYMPH # 1.3 10^3/uL (1.5-5.0); LYMPH % 10.9 % (24.0-44.0); MEAN CORPUSCULAR HEMOGLOBIN 31.8 pg (27.0-33.0); MEAN CORPUSCULAR VOLUME 99.2 fl (80.0-96.0); MONO # 0.9 10^3/uL (0.0-0.8); MONO % 7.5 % (2.0-8.0); NEUTROPHILS # 9.8 10^3/uL (1.5-8.5); NEUTROPHILS % 80.3 % (36.0-66.0); PLATELET COUNT, AUTOMATED 155 10^3/uL (150-450); RED BLOOD COUNT 5.29 10^6/uL (4.30-6.10); WHITE BLOOD COUNT 12.2 10^3/uL (4.0-10.0)
[2023-03-26 18:31] LABS: CALCIUM LEVEL 9.5 MG/DL (8.3-10.6); CREATININE FOR GFR 1.52 MG/DL (0.70-1.30); GLOMERULAR FILTRATION RATE 47.3 (>42); POTASSIUM SERUM 4.2 MMOL/L (3.5-5.1)
== END ==
LOC: M SFHCADAM 14:47
PROVIDERS: ATTEND Physician Assistant
DX: I25.10 Atherosclerotic heart disease of native coronary artery without angina pectoris (principal); I51.7 Cardiomegaly

== ENCOUNTER → 2023-04-15 | Outpatient (CLI) | payer MEDICARE | LOC: M WHC 12:24 | PROVIDERS: ATTEND Physician Assistant | DX: N63.23 Unspecified lump in the left breast, lower outer quadrant (principal) | CPT/HCPCS: 76642; 77066; G0279 ==

== ENCOUNTER → 2023-08-27 | Outpatient (CLI) | payer MEDICARE, SELFPAY ==
[2023-08-27 09:31] VITALS: BP 179/75; TEMP 97.5; O2SAT 95
[2023-08-27 09:51] LABS: HEMATOCRIT 51.5 % (42.0-52.0); HEMOGLOBIN 16.5 g/dl (13.5-17.5); MEAN CORPUSCULAR HEMOGLOBIN 31.7 pg (27.0-33.0); MEAN CORPUSCULAR VOLUME 98.8 fl (80.0-96.0); PLATELET COUNT, AUTOMATED 137 10^3/uL (150-450); RED BLOOD COUNT 5.21 10^6/uL (4.30-6.10); WHITE BLOOD COUNT 5.9 10^3/uL (4.0-10.0)
[2023-08-27 10:00] LABS: INR 1.11
[2023-08-27 10:01] LABS: PARTIAL THROMBOPLASTIN TIME 32.9 SECONDS (24.8-34.2)
== END ==
LOC: M WHCPRO 09:11
PROVIDERS: ATTEND Family Medicine
DX: C50 Malignant neoplasm of breast (principal); N63.23 Unspecified lump in the left breast, lower outer quadrant; Z79.01 Long term (current) use of anticoagulants; R22.2 Localized swelling, mass and lump, trunk

== ENCOUNTER → 2024-09-29 | Outpatient (REF) | payer MEDICARE ==
[~2024-09-29] MED LIST changes: +ACET1TAB55 PO; +PANT40TA29
[2024-09-29 15:06] LABS: ALBUMIN 3.6 G/DL (3.2-5.2); BILIRUBIN,TOTAL 0.7 MG/DL (0.3-1.2); CREATININE FOR GFR 1.74 MG/DL (0.70-1.30); GLOMERULAR FILTRATION RATE 40.4 (>35); HEMOGLOBIN A1c 6.3 % (4.0-6.0); POTASSIUM SERUM 4.9 MMOL/L (3.5-5.1); TOTAL PROTEIN 6.8 G/DL (5.7-8.2)
== END ==
LOC: M SFHCADAM 09:49
PROVIDERS: ATTEND Family Medicine
DX: E11.22 Type 2 diabetes mellitus with diabetic chronic kidney disease (principal); I10 Essential (primary) hypertension; N18.32 Chronic kidney disease, stage 3b

== ENCOUNTER 2024-10-25 10:25 | Inpatient (IN) | payer MEDICARE ==
[~2024-10-25] VITALS: Ht 167.6 cm; Wt 94.4 kg
[~2024-10-25 10:25] MED LIST changes: -PANT40TA29; +PANT40TA29 PO
[2024-10-25 11:11] LABS: VENOUS BASE EXCESS 0.4 (-2.0-2.0); VENOUS HCO3 27.2 MMOL/L (23.0-27.0); VENOUS O2 SATURATION 64.4 % (60.0-80.0); VENOUS PARTIAL PRESSURE CO2 51.4 mmHg (38.0-50.0); VENOUS PH 7.341 UNITS (7.330-7.430); VENOUS STANDARD HCO3 23.9 MMOL/L; VENOUS TOTAL CO2 28.7 MMOL/L (24.0-28.0)
[2024-10-25 11:29] LABS: HEMATOCRIT 49.1 % (42.0-52.0); MEAN CORPUSCULAR HEMOGLOBIN 31.6 pg (27.0-33.0); MEAN CORPUSCULAR HGB CONC 32.6 g/dl (32.0-36.5); PLATELET COUNT, AUTOMATED 175 10^3/uL (150-450); RED BLOOD COUNT 5.06 10^6/uL (4.30-6.10)
[2024-10-25 11:30] LABS: WHITE BLOOD COUNT 43.2 10^3/uL (4.0-10.0)
[2024-10-25 11:39] LABS: INR 2.07; PARTIAL THROMBOPLASTIN TIME 40.8 SECONDS (24.8-34.2); PROTHROMBIN TIME 23.4 SECONDS (12.5-14.5)
[2024-10-25] MEDS: cefTRIAXone SOD 2 GM in DEXTROSE 5% (D5W) ADV/MINI-BAG 50 ML IV ONE (11:54)
[2024-10-25 11:55] LABS: ATYPICAL LYMPH 2 % (0-5); LYMPHOCYTES 5 % (16-44); MONOCYTES 5 % (0-5); NEUTROPHILS 88 % (28-66); PLATELET ESTIMATE NORMAL (NORMAL)
[2024-10-25 11:56] LABS: POLYCHROMASIA 1+
[2024-10-25 12:00] LABS: ALBUMIN 3.3 G/DL (3.2-5.2); BILIRUBIN,DIRECT 1.2 MG/DL (<0.4); BILIRUBIN,TOTAL 3.1 MG/DL (0.3-1.2); CALCIUM LEVEL 9.3 MG/DL (8.3-10.6); CREATININE FOR GFR 2.2 MG/DL (0.70-1.30); GLOMERULAR FILTRATION RATE 30.8 (>35); POTASSIUM SERUM 4.4 MMOL/L (3.5-5.1); TOTAL PROTEIN 6.7 G/DL (5.7-8.2)
[2024-10-25 12:04] LABS: PROCALCITONIN 5.12 ng/ml
[2024-10-25 12:11] LABS: C REACTIVE PROTEIN QUANTITATIV 20.7 MG/DL (<1.0)
[2024-10-25] MEDS: ONDANSETRON 4MG 2ML VIAL IV ONE (12:17)
[2024-10-25] MEDS: ACETAMINOPHEN 325 MG TAB PO ONE (12:32)
[2024-10-25 13:12] LABS: APPEARANCE, URINE HAZY (CLEAR); BACTERIA, URINE AUTO NEGATIVE (NEGATIVE); BILIRUBIN, URINE AUTO NEGATIVE (NEGATIVE); BLOOD, URINE BLOOD 3+ (NEGATIVE); COLOR, URINE AMBER (YELLOW); GLUCOSE, URINE (UA) AUTO NEGATIVE (NEGATIVE); KETONE, URINE AUTO NEGATIVE (NEGATIVE); LEUKOCYTE ESTERASE, URINE AUTO NEGATIVE (NEGATIVE); MUCUS, URINE SMALL (NEGATIVE); NITRITE, URINE AUTO NEGATIVE (NEGATIVE); PROTEIN, URINE AUTO 2+ mg/dL (NEGATIVE); RBC, URINE AUTO TNTC /HPF (0-3); SPECIFIC GRAVITY URINE AUTO 1.019 (1.002-1.035); SQUAMOUS EPITHELIAL CELL UR AU 0 /HPF (0-6); WBC, URINE AUTO 3 /HPF (0-3)
[2024-10-25] MEDS: NS 500 ML IV ONE ×4 (14:05→22:37)
[2024-10-25] MEDS ORDERED: WARF-23 PO (14:15)
[2024-10-25] MEDS ORDERED: CO-E200C PO (14:15)
[2024-10-25] MEDS ORDERED: HOME MED LIST COMPLETE! XX SCH (14:15)
[2024-10-25] MEDS: IPRATROPIUM 0.5MG/ALBUTEROL 2.5MG INH SOL UD 3ML (DUONEB) NEB PRN (14:25)
[2024-10-25] MEDS: methylPREDNISolone 125MG 2ML VIAL IV ONE (14:29)
[2024-10-25] MEDS ORDERED: WARF-18 PO (15:11)
[2024-10-25] MEDS ORDERED: ONDANSETRON 4MG 2ML VIAL IV PRN (15:15)
[2024-10-25] MEDS ORDERED: SODIUM CHLORIDE HYPERTONIC 3% 4ML NEB SOL INH PRN (15:15)
[2024-10-25] MEDS ORDERED: VANCOMYCIN INTERMITTENT/PULSE DOSING BY CLINICAL PHARMACIST PER DOSING PROTOCOL XX SCH (15:35)
[2024-10-25] MEDS ORDERED: ACETAMINOPHEN 325 MG TAB PO PRN (15:35)
[2024-10-25] MEDS: CEFEPIME HCL 2 GM in DEXTROSE 5% (D5W) ADV/MINI-BAG 50 ML IV SCH (16:39)
[2024-10-25] MEDS: HYDROCORTISONE 100MG/2ML VIAL IV ONE (16:39)
[2024-10-25] MEDS: PANTOPRAZOLE 40MG VIAL IV SCH (16:40)
[2024-10-25] MEDS: MIDODRINE 5 MG TAB PO SCH (18:05)
[2024-10-25] MEDS: AZITHROMYCIN INJ 500 MG, VIAL MATE ADAPTER 1 EACH in NS 250 ML IV SCH (18:05)
[2024-10-25] MEDS: ALBUTEROL SULFATE 2.5MG/0.5ML INH NEB SOLN NEB SCH (20:07)
[2024-10-25] MEDS: VANCOMYCIN HCL 1,500 MG, VIAL MATE ADAPTER 1 EACH in NS 500 ML IV ONE (20:21)
[2024-10-25] MEDS: guaiFENesin ER TABLET 600 MG TAB PO SCH (21:14)
[2024-10-25] MEDS: PRAVASTATIN 20 MG TAB PO SCH (21:15)
[2024-10-25] MEDS: WARFARIN SOD 5MG TAB PO SCH (21:15)
[2024-10-25] MEDS: HYDROCORTISONE 100MG/2ML VIAL IV SCH (22:11)
[2024-10-26] VITALS (27 sets, daily range): BP systolic 90–120; BP diastolic 48–58; TEMP 97.9–98.8; O2SAT 77–98
[2024-10-26] MEDS: NOREPINEPHRINE 4MG IN D5 250ML 4 MG in IV 1 EA IV SCH (00:21)
[2024-10-26 05:18] LABS: HEMATOCRIT 43.8 % (42.0-52.0); HEMOGLOBIN 14.3 g/dl (13.5-17.5); MEAN CORPUSCULAR HGB CONC 32.6 g/dl (32.0-36.5); PLATELET COUNT, AUTOMATED 163 10^3/uL (150-450); RED BLOOD COUNT 4.47 10^6/uL (4.30-6.10)
[2024-10-26 05:21] LABS: WHITE BLOOD COUNT 46.3 10^3/uL (4.0-10.0)
[2024-10-26 05:58] LABS: PROCALCITONIN 14.59 ng/ml
[2024-10-26 06:20] LABS: ALBUMIN 2.5 G/DL (3.2-5.2); BILIRUBIN,TOTAL 1.4 MG/DL (0.3-1.2); CALCIUM LEVEL 8.3 MG/DL (8.3-10.6); CREATININE FOR GFR 2.28 MG/DL (0.70-1.30); GLOMERULAR FILTRATION RATE 29.6 (>35); POTASSIUM SERUM 4.8 MMOL/L (3.5-5.1); TOTAL PROTEIN 5.6 G/DL (5.7-8.2)
[2024-10-26 06:32] LABS: C REACTIVE PROTEIN QUANTITATIV 32.62 MG/DL (<1.0)
[2024-10-26] MEDS ORDERED: ALBUTEROL SULFATE 2.5MG/0.5ML INH NEB SOLN NEB PRN (09:35)
[2024-10-26] MEDS: NS 500 ML IV ONE (11:19)
[2024-10-26] MEDS: VANCOMYCIN HCL 750 MG, VIAL MATE ADAPTER 1 EACH in NS 250 ML IV SCH (11:19)
[2024-10-26] MEDS: AZITHROMYCIN 250MG TABLET PO SCH (13:12)
[2024-10-26 14:34] LABS: CALCIUM LEVEL 8.1 MG/DL (8.3-10.6); CREATININE FOR GFR 2.02 MG/DL (0.70-1.30); POTASSIUM SERUM 4.2 MMOL/L (3.5-5.1)
[2024-10-26] MEDS: LACTATED RINGER'S 1000 ML IV ONE (15:31)
[2024-10-26] MEDS: MIDODRINE 5 MG TAB PO SCH (16:49)
[2024-10-27] VITALS (12 sets, daily range): BP systolic 84–115; BP diastolic 50–63; TEMP 97–98; O2SAT 88–100
[2024-10-27 04:54] LABS: HEMATOCRIT 40.1 % (42.0-52.0); HEMOGLOBIN 12.7 g/dl (13.5-17.5); MEAN CORPUSCULAR HEMOGLOBIN 31.7 pg (27.0-33.0); MEAN CORPUSCULAR HGB CONC 31.7 g/dl (32.0-36.5); PLATELET COUNT, AUTOMATED 133 10^3/uL (150-450); RED BLOOD COUNT 4.01 10^6/uL (4.30-6.10); WHITE BLOOD COUNT 19.9 10^3/uL (4.0-10.0)
[2024-10-27 05:05] LABS: INR 2.98; PROTHROMBIN TIME 30.9 SECONDS (12.5-14.5)
[2024-10-27 05:20] LABS: ALBUMIN 2.2 G/DL (3.2-5.2); BILIRUBIN,TOTAL 0.6 MG/DL (0.3-1.2); CALCIUM LEVEL 8.5 MG/DL (8.3-10.6); CREATININE FOR GFR 1.91 MG/DL (0.70-1.30); GLOMERULAR FILTRATION RATE 36.3 (>35); POTASSIUM SERUM 5.1 MMOL/L (3.5-5.1); TOTAL PROTEIN 5.1 G/DL (5.7-8.2)
[2024-10-27] MEDS: METOPROLOL SUCC *XL* 12.5MG PER 1/2 TAB (TopROL *XL*) PO SCH (09:00)
[2024-10-27] MEDS: MIDODRINE 5 MG TAB PO SCH (12:20)
[2024-10-27] MEDS: WARFARIN SOD 2.5MG TAB PO SCH (20:45)
[2024-10-28] VITALS: BP 95/53; TEMP 97.5; O2SAT 97
[2024-10-28 04:00] VITALS: BP 95/50; TEMP 97.8; O2SAT 98
[2024-10-28 04:33] LABS: MEAN CORPUSCULAR HEMOGLOBIN 31.4 pg (27.0-33.0); MEAN CORPUSCULAR VOLUME 101.4 fl (80.0-96.0); PLATELET COUNT, AUTOMATED 132 10^3/uL (150-450); RED BLOOD COUNT 4.14 10^6/uL (4.30-6.10); WHITE BLOOD COUNT 16.5 10^3/uL (4.0-10.0)
[2024-10-28 04:55] LABS: ALBUMIN 2.3 G/DL (3.2-5.2); BILIRUBIN,TOTAL 0.6 MG/DL (0.3-1.2); CALCIUM LEVEL 8.4 MG/DL (8.3-10.6); CREATININE FOR GFR 1.52 MG/DL (0.70-1.30); GLOMERULAR FILTRATION RATE 47.2 (>35); POTASSIUM SERUM 4.9 MMOL/L (3.5-5.1); TOTAL PROTEIN 5.3 G/DL (5.7-8.2)
[2024-10-28 07:26] LABS: INR 2.61; PROTHROMBIN TIME 27.9 SECONDS (12.5-14.5)
[2024-10-28 08:00] VITALS: BP 106/52; TEMP 97.1; O2SAT 94
[2024-10-28] MEDS ORDERED: MIDO5TA PO (10:44)
[2024-10-28] MEDS ORDERED: METO1TAB32 PO (10:44)
[2024-10-28] MEDS ORDERED: LEVO1TAB40 PO (10:44)
[2024-10-28] MEDS ORDERED: MUCI600T31 PO (10:47)
[2024-10-29 19:32] LABS: URINE STREP PNEUMONIAE ANTIGEN NOT DETECTED (NOT DETECT)
== END 2024-10-28 12:00 | disposition home health service (06) | DRG 871 ==
LOC: M ED 10:25 → M ED INP 15:10 → M ICU 10-26 11:42
PROVIDERS: ADMIT Internal Medicine; ATTEND Internal Medicine
PROC: B246ZZZ Ultrasonography of Right and Left Heart (ICD-10-PCS; principal; 2024-10-26)
DX: A41.9 Sepsis, unspecified organism (principal); J15.69 Pneumonia due to other Gram-negative bacteria; J96.01 Acute respiratory failure with hypoxia; R65.21 Severe sepsis with septic shock; I50.22 Chronic systolic (congestive) heart failure; I13.0 Hypertensive heart and chronic kidney disease with heart failure and stage 1 through stage 4 chronic kidney disease, or unspecified chronic kidney disease; N17.9 Acute kidney failure, unspecified; E87.20 Acidosis, unspecified; I25.10 Atherosclerotic heart disease of native coronary artery without angina pectoris; C50.922 Malignant neoplasm of unspecified site of left male breast; I25.2 Old myocardial infarction; A08.4 Viral intestinal infection, unspecified; N18.30 Chronic kidney disease, stage 3 unspecified; J43.9 Emphysema, unspecified; E78.5 Hyperlipidemia, unspecified; M10.9 Gout, unspecified; I25.5 Ischemic cardiomyopathy; Z66 Do not resuscitate; Z79.01 Long term (current) use of anticoagulants; Z79.899 Other long term (current) drug therapy; Z88.2 Allergy status to sulfonamides

== ENCOUNTER → 2024-11-02 | Outpatient (REF) | payer MEDICARE ==
[~2024-11-02] MED LIST changes: +CO-E200C PO; +LEVO1TAB40 PO; +METO1TAB32 PO; +MIDO5TA PO; +MUCI600T31 PO; +WARF-23 PO
[2024-11-02 17:15] LABS: INR 3.12
== END ==
LOC: M SFHCADAM 15:02
PROVIDERS: ATTEND Family Medicine
DX: Z79.01 Long term (current) use of anticoagulants (principal)

== ENCOUNTER → 2024-12-06 | Outpatient (CLI) | payer MEDICARE | LOC: M PLARAD 12:26 | PROVIDERS: ATTEND Family Medicine | DX: C50.922 Malignant neoplasm of unspecified site of left male breast (principal) | CPT/HCPCS: 78815; A9552 ==

== ENCOUNTER 2025-07-01 02:45 | Emergency (ER) | payer MEDICARE ==
[~2025-07-01] VITALS: Ht 167.6 cm; Wt 92.0 kg
[~2025-07-01 02:45] MED LIST changes: -EZET10TA21 PO; +EZET10TA57 PO; -PRAV20TA2 PO; +PRAV20TA78 PO
[2025-07-01 04:03] LABS: KETONE, URINE AUTO RFX NEGATIVE (NEGATIVE); NITRITE, URINE AUTO RFX NEGATIVE (NEGATIVE); RBC, URINE AUTO RFX 7 /HPF (0-3); SQUAM EPITHELIAL CELL UR AURFX 0 /HPF (0-6); WBC, URINE AUTO RFX 4 /HPF (0-3)
[2025-07-01 04:04] LABS: LEUKOCYTE ESTERASE UR AUTO RFX TRACE (NEGATIVE)
[2025-07-01 04:06] LABS: BASO # 0.0 10^3/uL (0.0-0.2); BASO % 0.5 % (0.0-1.0); EOS # 0.0 10^3/uL (0.0-0.5); EOS % 0.2 % (0.0-3.0); LYMPH # 1.0 10^3/uL (1.5-5.0); LYMPH % 11.0 % (24.0-44.0); MONO # 0.4 10^3/uL (0.0-0.8); MONO % 5.0 % (2.0-8.0); NEUTROPHILS # 7.2 10^3/uL (1.5-8.5); NEUTROPHILS % 83.0 % (36.0-66.0); PLATELET COUNT, AUTOMATED 153 10^3/uL (150-450)
[2025-07-01 04:30] LABS: ALT/SGPT < 9 U/L (7.0-40); AST/SGOT 26 U/L (<34); CALCIUM LEVEL 8.8 MG/DL (8.3-10.6); CARBON DIOXIDE LEVEL 31 MMOL/L (20-31); CHLORIDE LEVEL 98 MMOL/L (98-107); CREATININE FOR GFR 2.16 MG/DL (0.70-1.30); GLOMERULAR FILTRATION RATE 30.0 (>35); POTASSIUM SERUM 3.9 MMOL/L (3.5-5.1); SODIUM LEVEL 139 MMOL/L (136-145)
[2025-07-01] MEDS ORDERED: FURO20TA2 (06:34)
[2025-07-01] MEDS: ONDANSETRON 4MG/2ML VIAL IV ONE (06:45)
[2025-07-01 09:05] VITALS: TEMP 98
[2025-07-01 09:15] VITALS: BP 103/58; O2SAT 94
== END 2025-07-01 09:30 | disposition home or self-care (01) ==
LOC: M ED 02:45
DX: K80.20 Calculus of gallbladder without cholecystitis without obstruction (principal); N20.1 Calculus of ureter; R79.89 Other specified abnormal findings of blood chemistry; I50.22 Chronic systolic (congestive) heart failure; E11.9 Type 2 diabetes mellitus without complications; I25.2 Old myocardial infarction; E78.5 Hyperlipidemia, unspecified; N18.30 Chronic kidney disease, stage 3 unspecified; C50.929 Malignant neoplasm of unspecified site of unspecified male breast; Z86.718 Personal history of other venous thrombosis and embolism; Z79.899 Other long term (current) drug therapy; Z79.01 Long term (current) use of anticoagulants
CPT/HCPCS: 71046; 74176; 80048; 80076; 81001; 83690; 85025; 87086; 93041; 94760; 96374; 99285; J2405

== ENCOUNTER 2025-07-26 13:26 | Emergency (ER) | payer MEDICARE ==
[~2025-07-26] VITALS: Ht 165.1 cm; Wt 89.0 kg
[~2025-07-26 13:26] MED LIST changes: +ANAS1TAB2 PO
[2025-07-26 14:29] LABS: BASO # 0.1 10^3/uL (0.0-0.2); BASO % 0.5 % (0.0-1.0); EOS # 0.1 10^3/uL (0.0-0.5); EOS % 0.8 % (0.0-3.0); LYMPH # 1.2 10^3/uL (1.5-5.0); LYMPH % 12.0 % (24.0-44.0); MONO # 0.8 10^3/uL (0.0-0.8); MONO % 8.0 % (2.0-8.0); NEUTROPHILS # 7.6 10^3/uL (1.5-8.5); NEUTROPHILS % 78.3 % (36.0-66.0); PLATELET COUNT, AUTOMATED 130 10^3/uL (150-450)
[2025-07-26 14:57] LABS: ALT/SGPT 12.0 U/L (7.0-40); AST/SGOT 44.0 U/L (<34)
[2025-07-26 15:15] LABS: INR 2.79
[2025-07-26 17:03] LABS: KETONE, URINE AUTO RFX NEGATIVE (NEGATIVE); LEUKOCYTE ESTERASE UR AUTO RFX NEGATIVE (NEGATIVE); NITRITE, URINE AUTO RFX NEGATIVE (NEGATIVE); RBC, URINE AUTO RFX 1 /HPF (0-3); SQUAM EPITHELIAL CELL UR AURFX 0 /HPF (0-6); WBC, URINE AUTO RFX 6 /HPF (0-3)
[2025-07-26] MEDS ORDERED: METO1TAB32 PO (18:18)
[2025-07-26] MEDS ORDERED: HOME MED LIST COMPLETE! XX SCH (18:20)
[2025-07-26] MEDS: AUGMENTIN 875 MG TAB PO ONE ×2 (18:24)
[2025-07-26] MEDS: traMADol 50 MG TAB (HOME DOSE PACK) PO ONE (18:25)
[2025-07-26 18:30] VITALS: BP 129/59; TEMP 98.3; O2SAT 99
[2025-07-26] MEDS ORDERED: TRAM50TA2 PO (18:35)
[2025-07-26] MEDS ORDERED: AMOX875T2 PO (18:35)
== END 2025-07-26 18:32 | disposition home or self-care (01) ==
LOC: M ED 13:26
DX: K80.20 Calculus of gallbladder without cholecystitis without obstruction (principal); I50.22 Chronic systolic (congestive) heart failure; E11.9 Type 2 diabetes mellitus without complications; I25.2 Old myocardial infarction; I25.119 Atherosclerotic heart disease of native coronary artery with unspecified angina pectoris; F41.9 Anxiety disorder, unspecified; F32.A Depression, unspecified; Z88.2 Allergy status to sulfonamides; Z79.2 Long term (current) use of antibiotics; Z79.01 Long term (current) use of anticoagulants; Z79.899 Other long term (current) drug therapy